=== PATIENT | female | born 1970 | race Hispanic/Latino ===

== ENCOUNTER 2016-03-20 11:31 | Day surgery (SDC) | payer OTHER ==
[2016-03-20] MEDS ORDERED: NACL 0.9% 1000 ML 1,000 ML IV SCH (12:00)
[2016-03-20] MEDS ORDERED: WATER FOR IRRIG STERILE IR ONE (12:24)
[2016-03-20] MEDS ORDERED: DIPRIVAN 10 MG/ML IV ONE (13:50)
--- NOTE | 2016-03-20 13:59 | Anesthesia Day of Surgery ---
Anesthesia Day of Surgery - Day of Surgery Patient Examined: Yes Patient H&P Reviewed: Yes Patient is NPO: Yes
--- NOTE | 2016-03-20 13:59 | Anesthesia Consultation ---
Anesthesia Consult and Med Hx Date of service: 03/20/16 - Airway Anesthetic Teeth Evaluation: Poor ROM Head & Neck: Adequate Mental/Hyoid Distance: Adequate Mallampati Class: Class II Intubation Access Assessment: Probably Good - Pulmonary Exam CTA: Yes - Cardiac Exam Cardiac Exam: RRR - Pre-Operative Health Status ASA Pre-Surgery Classification: ASA3 Proposed Anesthetic Plan: MAC - Pulmonary Hx Asthma: Yes - Cardiovascular System Hx Hypertension: Yes (HLD) Hx Angina: Yes (astypical, negative cardiac w/u) - Central Nervous System CVA: Yes (TIA) - Gastrointestinal Hx Gastroesophageal Reflux Disease: Yes - Other Systems Hx Obesity: Yes - Additional Comments Anesthesia Medical History Comments: NAC
--- NOTE | 2016-03-20 14:29 | Operative Report ---
Operative Report Operative Report: Date of procedure: 03/20/2016 Procedure: Esophagogastroduodenoscopy with multiple mucosal biopsies Attending physician: Jeferson Sky MD Property Assessment Monitor: Jeferson Sky MD Indication: Patient is a 45-year-old female who presents with persistent epigastric/right upper quadrant pain. An Upper endoscopy is done to assess patient so that treatment may be directed based on the findings. Consent: Informed consent was obtained after advising the patient and family regarding nature of this procedure, its indications, potential benefits as well as possible complications including but not limited to bleeding perforation and adverse reaction to medication, infection as well as other cardiopulmonary complications. An informed written and verbal consent was then obtained after due opportunity was provided for questions and answers. Monitoring: Patient was monitored continuously with pulse oximetry and electrocardiographic recordings as well as blood pressure recordings. Vital signs remained stable throughout this procedure with no untoward events. Preoperative assessment: Patient was assessed immediately prior to this procedure for capacity to tolerate monitored anesthesia care and moderate sedation as well as general anesthesia. Patient's ASA classification is 2, Mallampati class is 2, Hyomental distance is 3. Instrument: Ticket[employer]umbler video endoscope Medications: Propofol, given intravenously in divided doses. For details please refer to anesthesia records. Description of procedure: Patient was placed in the left lateral decubitus position after achieving sedation, the endoscope was introduced into the esophagus under direct vision. It was then advanced beyond the esophagus into the stomach and then beyond the stomach into the duodenum and to the second portion of the duodenum. It was subsequently withdrawn with careful inspection of all mucosal surfaces with the following findings. Findings: Esophagus was normal. The Z line was irregular. There was mild gastric antral erythema. Biopsies of the antrum were obtained for histopathology. The duodenum was normal to second portion. Impression: Irregular Z line. Mild gastric antral erythema. Plan: Follow pathology report and direct additional treatment based on the pathology report.
--- NOTE | 2016-03-20 14:33 | Discharge Summary ---
Short Stay Discharge Plan Weight Bearing Status: Weight Bear as Tolerated Diet: regular
[2016-03-20 14:58] VITALS: BP 135/73
--- NOTE | 2016-03-20 15:14 | Post Anesthesia Evaluation ---
- Post Anesthesia Evaluation Patient Participated: Yes Airway Patent: Yes Stable Respiratory Function: Yes Temp > 96.8F: Yes Pain Manageable: Yes Adequeate Hydration: Yes Anesthesia Complications: No Block Receding Appropriately: Not Applicable
== END 2016-03-20 11:32 | disposition home or self-care (01) ==
LOC: GIO 11:31
PROVIDERS: ATTEND Internal Medicine Gastroenterology
DX: K22.8 Other specified diseases of esophagus (principal); K31.89 Other diseases of stomach and duodenum; I10 Essential (primary) hypertension; K21.9 Gastro-esophageal reflux disease without esophagitis; J45.909 Unspecified asthma, uncomplicated; E66.9 Obesity, unspecified; Z68.42 Body mass index [BMI] 45.0-49.9, adult; Z86.73 Personal history of transient ischemic attack (TIA), and cerebral infarction without residual deficits
CPT/HCPCS: 43239; 88305; 88342; J2704; J7030

== ENCOUNTER 2016-05-28 10:37 | Emergency (ER) | payer OTHER ==
[2016-05-28 12:04] LABS: Basophils % (Auto) 0.4 % (0.0-1.8); Eosinophils % (Auto) 3.1 % (0.0-4.3); Hematocrit 38.3 % (30.3-42.9); Mean Corpuscular HGB Conc 34 % (30-34); Mean Corpuscular Hemoglobin 31 pg (28-32); Mean Corpuscular Volume 91 fl (79-97); Platelet Count 222 K/mm3 (140-440); Red Blood Count 4.19 M/mm3 (3.65-5.03); Red Cell Distribution Width 14.1 % (13.2-15.2); White Blood Count 6.5 K/mm3 (4.5-11.0)
[2016-05-28 12:21] LABS: BUN/Creatinine Ratio 17.14; Blood Urea Nitrogen 12 mg/dL (7-17); Calcium 9.3 mg/dL (8.4-10.2); Carbon Dioxide 25 mmol/L (22-30); Glucose 96 mg/dL (65-100)
[2016-05-28 12:22] LABS: Anion Gap 20 mmol/L; Chloride 95.1 mmol/L (98-107); Potassium 3.2 mmol/L (3.6-5.0); Sodium 137 mmol/L (137-145)
[2016-05-28] MEDS ORDERED: REGLAN IV ONE (14:45)
[2016-05-28] MEDS ORDERED: ULTRAM PO ONE (14:45)
[2016-05-28] MEDS ORDERED: NACL 0.9% 1000 ML 1,000 ML IV ONE (14:45)
--- NOTE | 2016-05-28 14:58 | Emergency Department Report ---
ED Chest Pain HPI - General Chief Complaint: Chest Pain Stated Complaint: CHEST PAIN Time Seen by Provider: 05/28/16 14:36 Source: patient Mode of arrival: Ambulatory Limitations: No Limitations - History of Present Illness Initial Comments: 46-year-old female presents to the emergency department complaining of chest pain. Patient reports the onset of chest pain at 9:30 this morning while at work. Patient describes a pressure sensation and stabbing pain in her right chest that radiates to her right shoulder blade. Patient reports associated headache and blurry vision. Headache is described as an aching. Headache and blurry vision are intermittent, but the chest pain has been constant since onset. Patient states that her chest pain is improving. Patient states she was having some mild shortness of breath when the pain was at its worst. Patient denies shortness of breath this time. She also denies associated nausea , vomiting, or diaphoresis. There are no other complaints. MD Complaint: chest pain -: Sudden, This morning Time: 09:30 Onset: during rest Pain Location: right chest Pain Radiation: back Severity: moderate Quality: pressure, other (stabbing) Consistency: constant Improves With: nothing Worsens With: palpation re: dyspnea. denies: nausea, vomting, diaphoresis Treatments Prior to Arrival: none Aspirin use within the Past 7 Days: (0) No - Related Data Home Medications Medication Instructions Recorded Confirmed Last Taken Hydrochlorothiazide [HCTZ] 25 mg PO QDAY 03/20/16 03/20/16 03/19/16 Pantoprazole [Protonix] 40 mg PO QDAY 03/20/16 03/20/16 03/18/16 Proventil 0.5% NEBS 200 inhalation PO PRN 03/20/16 03/20/16 03/18/16 Previous Rx's Medication Instructions Recorded Last Taken Type Metoprolol [Lopressor TAB] 25 mg PO QDAY #30 tablet 03/22/15 03/20/16 Rx 0900 Ondansetron [Zofran Odt] 4 mg PO TID #8 tab.rapdis 03/22/15 03/16/16 Rx Butalb/Acetamin/Caff 50-325-40 1 each PO Q4H PRN #20 tablet 05/28/16 Unknown Rx [Fioricet] traMADol [Ultram] 50 mg PO Q6HR PRN #20 tablet 05/28/16 Unknown Rx Allergies Allergy/AdvReac Type Severity Reaction Status Date / Time acetaminophen [From Percocet] Allergy Nausea,VOMI Unverified 07/02/15 08:37 TING aspirin Allergy Dizziness Verified 03/20/16 12:33 latex Allergy Rash Verified 03/20/16 12:33 naproxen [From Naprosyn] Allergy Rash Verified 05/28/16 11:05 oxycodone HCl [From Percocet] Allergy Nausea,VOMI Unverified 07/02/15 08:37 TING Sulfa (Sulfonamide Allergy Vomiting Verified 03/22/15 14:08 Antibiotics) ORLANDO score - Orlando Score Age > 65: (0) No Aspirin use within the Past 7 Days: (0) No 3 or more CAD Risk Factors: (0) No 2 or more Angina events in past 24 hrs: (0) No Known CAD with more than 50% Stenosis: (0) No Elevated Cardiac Markers: (0) No ST Deviation Greater than 0.5mm: (0) No [place]O Score: 0 ED Review of Systems ROS: Stated complaint: CHEST PAIN Other details as noted in HPI Comment: All other systems reviewed and negative Eyes: vision change Respiratory: shortness of breath Cardiovascular: chest pain Neurological: headache ED Past Medical Hx - Past Medical History Previous Medical History?: Yes Hx Hypertension: Yes Hx Headaches / Migraines: Yes (MIGRAINES) Hx Asthma: Yes Additional medical history: Hyperlipidemia - Surgical History Past Surgical History?: Yes Hx Cholecystectomy: Yes Additional Surgical History: R shoulder surgery - Family History Family history: no significant - Social History Smoking Status: Never Smoker Substance Use Type: None - Medications Home Medications: Home Medications Medication Instructions Recorded Confirmed Last Taken Type Metoprolol [Lopressor TAB] 25 mg PO QDAY #30 tablet 03/22/15 03/20/16 03/20/16 Rx 0900 Ondansetron [Zofran Odt] 4 mg PO TID #8 tab.rapdis 03/22/15 03/20/16 03/16/16 Rx Hydrochlorothiazide [HCTZ] 25 mg PO QDAY 03/20/16 03/20/16 03/19/16 History Pantoprazole [Protonix] 40 mg PO QDAY 03/20/16 03/20/16 03/18/16 History Proventil 0.5% NEBS 200 inhalation PO PRN 03/20/16 03/20/16 03/18/16 History Butalb/Acetamin/Caff 50-325-40 1 each PO Q4H PRN #20 tablet 05/28/16 Unknown Rx [Fioricet] traMADol [Ultram] 50 mg PO Q6HR PRN #20 tablet 05/28/16 Unknown Rx ED Physical Exam - General Limitations: No Limitations General appearance: alert, in no apparent distress - Head Head exam: Present: atraumatic, normocephalic - Eye Eye exam: Present: normal appearance, PERRL, EOMI - ENT ENT exam: Present: normal exam, normal orophraynx, mucous membranes moist - Neck Neck exam: Present: normal inspection, full ROM. Absent: tenderness - Respiratory Respiratory exam: Present: normal lung sounds bilaterally, chest wall tenderness (right anterior chest wall tender to palpation. Palpation reproduces her complaint.). Absent: respiratory distress - Cardiovascular Cardiovascular Exam: Present: regular rate, normal rhythm, normal heart sounds - GI/Abdominal GI/Abdominal exam: Present: soft, normal bowel sounds. Absent: distended, tenderness - Extremities Exam Extremities exam: Present: normal inspection, full ROM. Absent: tenderness - Back Exam Back exam: Present: normal inspection, full ROM. Absent: tenderness - Neurological Exam Neurological exam: Present: alert, oriented X3. Absent: motor sensory deficit - Skin Skin exam: Present: warm, dry, intact ED Course Vital Signs 05/28/16 05/28/16 11:06 15:06 Temperature 97.5 F L Pulse Rate 69 Respiratory 18 18 Rate Blood Pressure 136/76 O2 Sat by Pulse 96 96 Oximetry ED Medical Decision Making - Lab Data Result diagrams: 05/28/16 11:35 05/28/16 11:35 - EKG Data -: EKG Interpreted by Sd EKG shows normal: sinus rhythm, axis, intervals, QRS complexes, ST-T waves Rate: normal - EKG Data When compared to previous EKG there are: no significant change Interpretation: normal EKG, unchanged when compared t (10/20/2014) - Medical Decision Making Laboratory results reviewed and discussed with the patient. Patient has had a nonischemic ECG and 2 negative troponins. Patient reports feeling better with medication. Patient will be discharged home at this time. - Differential Diagnosis atypical chest pain, chest wall pain, migraine headache Critical care attestation.: If time is entered above; I have spent that time in minutes in the direct care of this critically ill patient, excluding procedure time. ED Disposition Clinical Impression: Chest wall pain Migraine headache without aura Qualifiers: Status migrainosus presence: without status migrainosus Intractability: not intractable Qualified Code(s): G43.009 - Migraine without aura, not intractable , without status migrainosus Disposition: DISCHARGED TO HOME OR SELFCARE Is pt being admited?: No Condition: Stable Instructions: Chest Pain (ED), Acute Headache (ED) Prescriptions: Butalb/Acetamin/Caff 50-325-40 [Fioricet] 1 each PO Q4H PRN #20 tablet PRN Reason: Headache traMADol [Ultram] 50 mg PO Q6HR PRN #20 tablet PRN Reason: Pain Referrals: PRIMARY CARE, [Primary Care Provider] - 3-5 Days Time of Disposition: 16:01
[2016-05-28 16:30] VITALS: BP 106/53
== END 2016-05-28 16:32 | disposition home or self-care (01) ==
LOC: ED 10:37
DX: G43.009 Migraine without aura, not intractable, without status migrainosus (principal); R07.89 Other chest pain; I10 Essential (primary) hypertension; J45.909 Unspecified asthma, uncomplicated; E78.5 Hyperlipidemia, unspecified; Z90.49 Acquired absence of other specified parts of digestive tract; Z88.2 Allergy status to sulfonamides; Z88.5 Allergy status to narcotic agent; Z88.8 Allergy status to other drugs, medicaments and biological substances; Z91.040 Latex allergy status
CPT/HCPCS: 36415; 80048; 84484; 85025; 93005; 93010; 96361; 96374; 99284; J2765; J7030

== ENCOUNTER 2016-07-04 10:37 | Outpatient (CLI) | payer OTHER ==
[2016-07-04] MEDS ORDERED: NACL ONE (11:18)
--- NOTE | 2016-07-04 12:52 | Cat Scan Report ---
CTA chest: History: Chest pain. Findings: No evidence of aortic aneurysm or pulmonary embolism. No pleural or pericardial effusion. No mediastinal mass or adenopathy. Normal lung parenchyma No discrete nodularity or consolidation. Impression: No evidence of pulmonary embolism. No acute lung findings.
== END 2016-07-04 10:38 | disposition home or self-care (01) ==
LOC: CT 10:37
PROVIDERS: ATTEND Internal Medicine Cardiovascular Disease
DX: R79.1 Abnormal coagulation profile (principal); R06.00 Dyspnea, unspecified; R07.89 Other chest pain; R06.02 Shortness of breath; R63.5 Abnormal weight gain
CPT/HCPCS: 71275; Q9967

== ENCOUNTER 2016-11-30 12:19 | Emergency (ER) | payer OTHER ==
[2016-11-30 13:12] LABS: Basophils % (Auto) 0.5 % (0.0-1.8); Eosinophils % (Auto) 4.2 % (0.0-4.3); Hematocrit 35.2 % (30.3-42.9); Hemoglobin 12.4 gm/dl (10.1-14.3); Mean Corpuscular HGB Conc 35 % (30-34); Mean Corpuscular Hemoglobin 33 pg (28-32); Mean Corpuscular Volume 93 fl (79-97); Platelet Count 188 K/mm3 (140-440); Red Blood Count 3.79 M/mm3 (3.65-5.03); Red Cell Distribution Width 13.6 % (13.2-15.2); White Blood Count 5.6 K/mm3 (4.5-11.0)
[2016-11-30 14:06] LABS: Anion Gap 18 mmol/L; BUN/Creatinine Ratio 19; Blood Urea Nitrogen 15 mg/dL (7-17); Carbon Dioxide 28 mmol/L (22-30); Chloride 95.7 mmol/L (98-107); Glucose 108 mg/dL (65-100); Potassium 3.4 mmol/L (3.6-5.0); Sodium 138 mmol/L (137-145)
[2016-11-30] MEDS: NACL ONE (19:03)
--- NOTE | 2016-11-30 20:12 | Emergency Department Report ---
HPI - General Chief Complaint: Chest Pain Time Seen by Provider: 11/30/16 17:26 - HPI HPI: 46-year-old female presents to ED with chest pain right-sided, also have some right-sided weakness numbness. Her symptoms is been going on for the past 2 days her chest pain is improved with Zantac and other antacids. She works at [employer] and consider herself pretty active. ED Past Medical Hx - Past Medical History Previous Medical History?: Yes Hx Hypertension: Yes 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 TIA OCT 2015 - Surgical History Past Surgical History?: Yes Hx Cholecystectomy: Yes Additional Surgical History: R shoulder surgery - Social History Smoking Status: Never Smoker Substance Use Type: Prescribed - Medications Home Medications: Home Medications Medication Instructions Recorded Confirmed Last Taken Type Hydrochlorothiazide [HCTZ] 25 mg PO DAILY 03/20/16 06/17/16 06/17/16 History AtorvaSTATin [Lipitor] 40 mg PO QHS 06/17/16 06/17/16 06/16/16 History Beclomethasone Dipropionate [Qvar] 2 puff IH BID 06/17/16 06/17/16 06/17/16 History Butalb/Acetamin/Caff 50-325-40 1 each PO PRN PRN 06/17/16 06/17/16 Unknown History [Fioricet] Gabapentin [Neurontin] 300 mg PO Q8HR 06/17/16 06/17/16 06/17/16 History Ibuprofen [Motrin 800 MG tab] 800 mg PO Q8HR PRN 06/17/16 06/17/16 06/17/16 History Metoclopramide [Reglan TAB] 1 each PO DAILY 06/17/16 06/17/16 06/17/16 History Metoprolol [Lopressor TAB] 50 mg PO QDAY 06/17/16 06/17/16 06/17/16 History Potassium Chloride [K-Tab ER] 10 meq PO DAILY 06/17/16 06/17/16 06/17/16 History ED Review of Systems ROS: Stated complaint: CHEST PAIN Other details as noted in HPI Comment: All other systems reviewed and negative Cardiovascular: chest pain Physical Exam - Physical Exam Vital Signs: Vital Signs 11/30/16 11/30/16 11/30/16 12:28 16:35 18:28 Temperature 97.8 F 97.7 F Pulse Rate 68 58 L Respiratory 18 18 Rate Blood Pressure 140/80 132/71 Blood Pressure [Right] O2 Sat by Pulse 96 99 98 Oximetry 11/30/16 11/30/16 11/30/16 18:30 18:51 18:58 Temperature Pulse Rate 62 61 Respiratory 17 11 L 18 Rate Blood Pressure Blood Pressure 124/70 [Right] O2 Sat by Pulse 98 99 Oximetry Physical Exam: Physical Exam: - General Limitations: No Limitations General appearance: alert, in no apparent distress. - Head Head exam: Present: atraumatic, normocephalic - Eye Eye exam: Present: normal appearance - ENT ENT exam: Present: mucous membranes moist - Neck Neck exam: Present: normal inspection - Respiratory Respiratory exam: Present: normal lung sounds bilaterally. Absent: respiratory distress - Cardiovascular Cardiovascular Exam: Present: normal rhythm, normal rate. Absent: systolic murmur, diastolic murmur, rubs, gallop - GI/Abdominal GI/Abdominal exam: Present: soft, normal bowel sounds - Extremities Exam Extremities exam: Present: normal inspection - Back Exam Back exam: Present: normal inspection - Neurological Exam Neurological exam: Present: alert, oriented X3 - Psychiatric Psychiatric exam: normal affect and mood - Skin Skin exam: Present: warm, dry, intact, normal color. Absent: rash ED Course Vital Signs 11/30/16 11/30/16 11/30/16 12:28 16:35 18:28 Temperature 97.8 F 97.7 F Pulse Rate 68 58 L Respiratory 18 18 Rate Blood Pressure 140/80 132/71 Blood Pressure [Right] O2 Sat by Pulse 96 99 98 Oximetry 11/30/16 11/30/16 11/30/16 18:30 18:51 18:58 Temperature Pulse Rate 62 61 Respiratory 17 11 L 18 Rate Blood Pressure Blood Pressure 124/70 [Right] O2 Sat by Pulse 98 99 Oximetry ED Medical Decision Making - Lab Data Result diagrams: 11/30/16 12:56 11/30/16 12:56 Critical care attestation.: If time is entered above; I have spent that time in minutes in the direct care of this critically ill patient, excluding procedure time. ED Disposition Clinical Impression: Paresthesia Chest pain Qualifiers: Chest pain type: other chest pain Qualified Code(s): R07.89 - Other chest pain ; R07.8 - Other chest pain GERD (gastroesophageal reflux disease) Qualifiers: Esophagitis presence: with esophagitis Qualified Code(s): K21.0 - Gastro- esophageal reflux disease with esophagitis Disposition: TO HOME OR SELFCARE Is pt being admited?: No Does the pt Need Aspirin: No Condition: Stable Instructions: Chest Pain (ED) Referrals: FRANCES BARNETT MD [Primary Care Provider] - 3-5 Days
--- NOTE | 2016-11-30 20:26 | Cat Scan Report ---
FINAL REPORT EXAM: CT HEAD/BRAIN WO CON HISTORY: right sided weakness TECHNIQUE: CT was performed from the foramen magnum through the vertex in the axial plane without the use of intravenous contrast. PRIORS: 03/01/2015 FINDINGS: The pan/white matter attenuation pattern is normal. There is no mass lesion or mass effect. There are no abnormal extra-axial fluid collections. There is no evidence of acute intracranial hemorrhage or infarct. The ventricles are of normal size and configuration. The skull and orbits are unremarkable. There is patchy mucosal thickening in the ethmoid air cells.. IMPRESSION: Normal CT of the head.
[2016-11-30 21:36] VITALS: BP 131/71
== END 2016-11-30 20:40 | disposition home or self-care (01) ==
LOC: ED 12:19
DX: K21.9 Gastro-esophageal reflux disease without esophagitis (principal); R07.89 Other chest pain; R20.2 Paresthesia of skin; I10 Essential (primary) hypertension; Z86.73 Personal history of transient ischemic attack (TIA), and cerebral infarction without residual deficits; E11.9 Type 2 diabetes mellitus without complications; J45.909 Unspecified asthma, uncomplicated; G43.909 Migraine, unspecified, not intractable, without status migrainosus; E78.5 Hyperlipidemia, unspecified; Z88.6 Allergy status to analgesic agent; Z88.8 Allergy status to other drugs, medicaments and biological substances
CPT/HCPCS: 36415; 70450; 80048; 84484; 85025; 93005; 93010

== ENCOUNTER 2018-04-02 10:37 | Observation (INO) | payer OTHER ==
[2018-04-02 11:36] LABS: Basophils % (Auto) 0.9 % (0.0-1.8); Eosinophils # (Auto) 0.2 K/mm3 (0.0-0.4); Eosinophils % (Auto) 3.6 % (0.0-4.3); Hematocrit 37.1 % (30.3-42.9); Hemoglobin 12.9 gm/dl (10.1-14.3); Lymphocytes # (Auto) 1.6 K/mm3 (1.2-5.4); Lymphocytes % (Auto) 30.2 % (13.4-35.0); Mean Corpuscular HGB Conc 35 % (30-34); Mean Corpuscular Volume 93 fl (79-97); Monocytes # (Auto) 0.3 K/mm3 (0.0-0.8); Monocytes % (Auto) 5.4 % (0.0-7.3); Platelet Count 186 K/mm3 (140-440); Red Blood Count 3.99 M/mm3 (3.65-5.03); Red Cell Distribution Width 14.2 % (13.2-15.2)
--- NOTE | 2018-04-02 11:42 | Emergency Department Report ---
ED Chest Pain HPI - General Chief Complaint: Chest Pain Stated Complaint: CHEST PAIN Time Seen by Provider: 04/02/18 11:19 Source: patient, EMS Mode of arrival: Wheelchair Limitations: No Limitations - History of Present Illness Initial Comments: 47-year-old female presents to the emergency department with complaint of some diaphoresis, chest pain, back pain and nausea. The patient says that she was at work when she started feeling diaphoretic. She says that she had a hysterectomy back in October and therefore thought that maybe she was just undergoing some menopausal changes. However 20 minutes later she started having chest pain across the entire chest with some radiation towards the back. This is a tightness/squeezing sensation. It has been there consistently since but the intensity waxes and wanes. The symptoms feel better when she is laying flat. She did not take anything for her symptoms prior to arrival. She has a past medical history that includes asthma, TIA, diet controlled diabetes, migraines, hypertension, hyperlipidemia, neuropathy and fibromyalgia. She also has a previous history of a pulmonary embolism last year but is not currently on any anticoagulation. Her primary care physician is Dr. Veto Mcpherson. She does not have a whitewasher. Severity scale (0 -10): 4 - Related Data Home Medications Medication Instructions Recorded Confirmed Last Taken hydroCHLOROthiazide [HCTZ] 25 mg PO DAILY 03/20/16 06/17/16 06/17/16 AtorvaSTATin [Lipitor] 40 mg PO QHS 06/17/16 06/17/16 06/16/16 Beclomethasone Dipropionate [Qvar] 2 puff IH BID 06/17/16 06/17/16 06/17/16 Butalb/Acetamin/Caff 50-325-40 1 each PO PRN PRN 06/17/16 06/17/16 Unknown [Fioricet] Gabapentin [Neurontin] 300 mg PO Q8HR 06/17/16 06/17/16 06/17/16 Ibuprofen [Motrin 800 MG tab] 800 mg PO Q8HR PRN 06/17/16 06/17/16 06/17/16 Metoclopramide [Reglan TAB] 1 each PO DAILY 06/17/16 06/17/16 06/17/16 Metoprolol [Lopressor TAB] 50 mg PO QDAY 06/17/16 06/17/16 06/17/16 Potassium Chloride [K-Tab ER] 10 meq PO DAILY 06/17/16 06/17/16 06/17/16 Allergies Allergy/AdvReac Type Severity Reaction Status Date / Time acetaminophen [From Percocet] Allergy Nausea,VOMI Verified 06/17/16 11:43 TING aspirin Allergy Dizziness Verified 06/17/16 11:43 latex Allergy Rash Verified 06/17/16 11:43 naproxen [From Naprosyn] Allergy Rash Verified 06/17/16 11:43 oxycodone HCl [From Percocet] Allergy Nausea,VOMI Verified 06/17/16 11:43 TING Sulfa (Sulfonamide Allergy Vomiting Verified 06/17/16 11:43 Antibiotics) Heart Score - HEART Score History: Moderately suspicious EKG: Normal Age: 45-65 Risk factors: 1-2 risk factors Troponin: < normal limit HEART Score: 3 - Critical Actions Critical Actions: 0-3 pts:0.9-1.7%risk of adverse cardiac event.Candidate for discharge ED Review of Systems ROS: Stated complaint: CHEST PAIN Other details as noted in HPI Comment: All other systems reviewed and negative Constitutional: diaphoresis. denies: fever Eyes: denies: eye pain, vision change ENT: denies: ear pain, throat pain Respiratory: denies: cough, shortness of breath Cardiovascular: chest pain. denies: palpitations Gastrointestinal: nausea. denies: vomiting Genitourinary: denies: dysuria, discharge Musculoskeletal: back pain. denies: arthralgia Skin: denies: rash, lesions Neurological: denies: weakness, numbness ED Past Medical Hx - Past Medical History Previous Medical History?: Yes Hx Hypertension: Yes 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 TIA OCT 2015. neuropathy. fibromyalgia - Surgical History Hx Cholecystectomy: Yes Additional Surgical History: R shoulder surgery - Social History Smoking Status: Never Smoker Substance Use Type: None - Medications Home Medications: Home Medications Medication Instructions Recorded Confirmed Last Taken Type hydroCHLOROthiazide [HCTZ] 25 mg PO DAILY 03/20/16 06/17/16 06/17/16 History AtorvaSTATin [Lipitor] 40 mg PO QHS 06/17/16 06/17/16 06/16/16 History Beclomethasone Dipropionate [Qvar] 2 puff IH BID 06/17/16 06/17/16 06/17/16 History Butalb/Acetamin/Caff 50-325-40 1 each PO PRN PRN 06/17/16 06/17/16 Unknown History [Fioricet] Gabapentin [Neurontin] 300 mg PO Q8HR 06/17/16 06/17/16 06/17/16 History Ibuprofen [Motrin 800 MG tab] 800 mg PO Q8HR PRN 06/17/16 06/17/16 06/17/16 History Metoclopramide [Reglan TAB] 1 each PO DAILY 06/17/16 06/17/16 06/17/16 History Metoprolol [Lopressor TAB] 50 mg PO QDAY 06/17/16 06/17/16 06/17/16 History Potassium Chloride [K-Tab ER] 10 meq PO DAILY 06/17/16 06/17/16 06/17/16 History ED Physical Exam - General Limitations: No Limitations - Other Other exam information: GENERAL: The patient is well-developed well-nourished. HEENT: Normocephalic. Atraumatic. Patient has moist mucous membranes. EYES: Extraocular motions are intact. Pupils are equal and reactive to light bilaterally. NECK: Supple. Trachea is midline. CHEST/LUNGS: Clear to auscultation. There is no respiratory distress noted. HEART/CARDIOVASCULAR: Regular. There is no tachycardia. There is no obvious murmur. ABDOMEN: Abdomen is soft, nontender. Patient has normal bowel sounds. Obese habitus. SKIN: Skin is warm and dry. NEURO: The patient is awake, alert, and oriented. The patient is cooperative. The patient has no focal neurologic deficits. The patient has normal speech. MUSCULOSKELETAL: There is no tenderness or deformity. There is no evidence of acute injury. ED Course Vital Signs 04/02/18 04/02/18 04/02/18 11:00 11:02 11:16 Temperature 98.5 F Pulse Rate 81 77 Respiratory 15 99 H Rate Blood Pressure 142/88 135/72 142/88 O2 Sat by Pulse 93 97 Oximetry 04/02/18 04/02/18 11:30 11:36 Temperature Pulse Rate 74 Respiratory 19 14 Rate Blood Pressure 127/71 O2 Sat by Pulse 92 Oximetry ORLANDO score - Orlando Score Age > 65: (0) No Aspirin use within the Past 7 Days: (0) No 3 or more CAD Risk Factors: (0) No 2 or more Angina events in past 24 hrs: (1) Yes Known CAD with more than 50% Stenosis: (0) No Elevated Cardiac Markers: (0) No ST Deviation Greater than 0.5mm: (0) No ORLANDO Score: 1 ED Medical Decision Making - Lab Data Result diagrams: 04/02/18 11:23 04/02/18 11:23 - EKG Data -: EKG Interpreted by Me EKG shows normal: sinus rhythm, axis, intervals, QRS complexes, ST-T waves Rate: normal - EKG Data When compared to previous EKG there are: previous EKG unavailable Interpretation: normal EKG - Radiology Data Radiology results: image reviewed interpreted by me: Chest x-ray does not show any pneumothorax, pleural effusion, pneumonia or obvious focal consolidation. - Medical Decision Making Patient presents to the emergency department with complaint of some chest pain with radiation towards the back that was preceded by some diaphoresis. Patient has multiple comorbidities and medical conditions. Vital signs stable. EKG did not show any signs of ST elevation [place]. First troponin negative and negative d- dimer. Chest x-ray did not show any pleural effusions, focal consolidation, pneumothorax, pneumonia, or any other acute process. It has been almost 2 years since patient had a heart catheterization and for stress test and she continues to have chest discomfort. These reasons patient will be admitted to the hospital for further evaluation and treatment was extended for admission by the hospitalist, Dr. Chambers. - Differential Diagnosis WA, PE, Costochondritis, Pneumonia Critical Care Time: No Critical care attestation.: If time is entered above; I have spent that time in minutes in the direct care of this critically ill patient, excluding procedure time. ED Disposition Clinical Impression: Atypical chest pain, Acute chest pain, Diaphoresis Obesity Qualifiers: Obesity type: unspecified obesity type Obesity classification: adult class 3 (BMI >= 40) Serious obesity comorbidity presence: unspecified whether serious comorbidity present Body mass index: unspecified BMI Qualified Code(s): E66.01 - Morbid (severe) obesity due to excess calories Disposition: OP ADMIT IP TO THIS HOSP Is pt being admited?: Yes Condition: Fair Instructions: Chest Pain (ED) Referrals: PRIMARY CARE,MD [Primary Care Provider] - 3-5 Days
[2018-04-02 11:47] LABS: INR 0.95 (0.87-1.13)
[2018-04-02 11:55] LABS: BUN/Creatinine Ratio 11; Blood Urea Nitrogen 8 mg/dL (7-17); Calcium 9.5 mg/dL (8.4-10.2); Hemolysis Index 22
--- NOTE | 2018-04-02 12:15 | XRay Report ---
AP CHEST: HISTORY: chest pain AP view of the chest demonstrates a normal mediastinal and cardiac contour with clear lungs and normal bony and soft tissue structures. IMPRESSION: Unremarkable AP chest.
--- NOTE | 2018-04-03 02:33 | History and Physical Report ---
History of Present Illness Date of examination: 04/02/18 Date of admission: 04/02/18 12:26 Chief complaint: Chest pain History of present illness: 47-year-old female with history of HTN Gerd PN and HLD comes infro chest pain for 1 day associated with diaphoresis and SOB.Chest pain is retrosternal and precordial.Nausea present.No recent travel.No sob on exertion.Had VVA with some residual weakness.No stents or cath. Past Medical History Previous Medical History?: Yes Hypertension: Yes CVA: Yes (weakness on right side) Diabetes: Yes (border line diet controlled) Headaches / Migraines: Yes (MIGRAINES) Asthma: Yes Additional medical history: Hyperlipidemia. TIA OCT 2015. neuropathy. fibromyalgia Surgical History Hx Cholecystectomy: Yes Additional Surgical History: R shoulder surgery Social History Smoking Status: Never Smoker Substance Use Type: None Family History Htn Medications Home Medications: Home Medications Medication Instructions Recorded Confirmed Last Taken Type hydroCHLOROthiazide [HCTZ] 25 mg PO DAILY 03/20/16 06/17/16 06/17/16 History AtorvaSTATin [Lipitor] 40 mg PO QHS 06/17/16 06/17/16 06/16/16 History Beclomethasone Dipropionate [Qvar] 2 puff IH BID 06/17/16 06/17/16 06/17/16 History Butalb/Acetamin/Caff 50-325-40 1 each PO PRN PRN 06/17/16 06/17/16 Unknown History [Fioricet] Gabapentin [Neurontin] 300 mg PO Q8HR 06/17/16 06/17/16 06/17/16 History Ibuprofen [Motrin 800 MG tab] 800 mg PO Q8HR PRN 06/17/16 06/17/16 06/17/16 History Metoclopramide [Reglan TAB] 1 each PO DAILY 06/17/16 06/17/16 06/17/16 History Metoprolol [Lopressor TAB] 50 mg PO QDAY 06/17/16 06/17/16 06/17/16 History Potassium Chloride [K-Tab ER] 10 meq PO DAILY 06/17/16 06/17/16 06/17/16 History Review of Systems ROS: Stated complaint: CHEST PAIN Other details as noted in HPI Comment: All other systems reviewed and negative Constitutional: diaphoresis. denies: fever Eyes: denies: eye pain, vision change ENT: denies: ear pain, throat pain Respiratory: denies: cough, shortness of breath Cardiovascular: chest pain. denies: palpitations Gastrointestinal: nausea. denies: vomiting Genitourinary: denies: dysuria, discharge Musculoskeletal: back pain. denies: arthralgia Skin: denies: rash, lesions Neurological: denies: weakness, numbness Medications and Allergies Allergies Allergy/AdvReac Type Severity Reaction Status Date / Time acetaminophen [From Percocet] Allergy Nausea,VOMI Verified 06/17/16 11:43 TING aspirin Allergy Dizziness Verified 06/17/16 11:43 latex Allergy Rash Verified 06/17/16 11:43 naproxen [From Naprosyn] Allergy Rash Verified 06/17/16 11:43 oxycodone HCl [From Percocet] Allergy Nausea,VOMI Verified 06/17/16 11:43 TING Sulfa (Sulfonamide Allergy Vomiting Verified 06/17/16 11:43 Antibiotics) Home Medications Medication Instructions Recorded Confirmed Last Taken Type hydroCHLOROthiazide [HCTZ] 25 mg PO DAILY 03/20/16 04/02/18 06/17/16 History Beclomethasone Dipropionate [Qvar] 2 puff IH QDAY 06/17/16 04/02/18 06/17/16 History Gabapentin [Neurontin] 400 mg PO TID 04/02/18 04/02/18 Unknown History Metoprolol Succinate [Toprol Xl] 50 mg PO QDAY 04/02/18 04/02/18 Unknown History Pantoprazole [Protonix] 40 mg PO DAILY 04/02/18 04/02/18 Unknown History Exam - Constitutional Vitals: Temp Pulse Resp BP Pulse Ox 98.0 F 83 20 135/72 94 04/03/18 00:15 04/03/18 00:15 04/03/18 00:15 04/03/18 00:15 04/03/18 00:15 General appearance: Present: no acute distress, well-nourished - EENT Eyes: Present: PERRL ENT: hearing intact, clear oral mucosa - Neck Neck: Present: supple, normal ROM - Respiratory Respiratory effort: normal Respiratory: bilateral: CTA - Cardiovascular Heart rate: 78 Rhythm: regular Heart Sounds: Present: S1 & S2. Absent: rub, click - Extremities Extremities: no ischemia, pulses intact, pulses symmetrical, No edema Peripheral Pulses: within normal limits - Abdominal General gastrointestinal: Present: soft, non-tender, non-distended, normal bowel sounds Female genitourinary: Present: normal - Integumentary Integumentary: Present: clear, warm, dry - Musculoskeletal Musculoskeletal: gait normal, strength equal bilaterally - Psychiatric Psychiatric: appropriate mood/affect, intact judgment & insight - Neurologic Neurologic: CNII-XII intact, moves all extremities - Allied Health Allied health notes reviewed: nursing, case management Results - Labs CBC & Chem 7: 04/02/18 11:23 04/02/18 11:23 Labs: Laboratory Last Values WBC 5.3 K/mm3 (4.5-11.0) 04/02/18 11:23 RBC 3.99 M/mm3 (3.65-5.03) 04/02/18 11:23 Hgb 12.9 gm/dl (10.1-14.3) 04/02/18 11:23 Hct 37.1 % (30.3-42.9) 04/02/18 11:23 MCV 93 fl (79-97) 04/02/18 11:23 MCH 32 pg (28-32) 04/02/18 11:23 MCHC 35 % (30-34) H 04/02/18 11:23 RDW 14.2 % (13.2-15.2) 04/02/18 11:23 Plt Count 186 K/mm3 (140-440) 04/02/18 11:23 Lymph % (Auto) 30.2 % (13.4-35.0) 04/02/18 11:23 Elliott % (Auto) 5.4 % (0.0-7.3) 04/02/18 11:23 Eos % (Auto) 3.6 % (0.0-4.3) 04/02/18 11:23 Baso % (Auto) 0.9 % (0.0-1.8) 04/02/18 11:23 Lymph # 1.6 K/mm3 (1.2-5.4) 04/02/18 11:23 Elliott # 0.3 K/mm3 (0.0-0.8) 04/02/18 11:23 Eos # 0.2 K/mm3 (0.0-0.4) 04/02/18 11:23 Baso # 0.0 K/mm3 (0.0-0.1) 04/02/18 11:23 Seg Neutrophils % 59.9 % (40.0-70.0) 04/02/18 11:23 Seg Neutrophils # 3.2 K/mm3 (1.8-7.7) 04/02/18 11:23 PT 13.3 Sec. (12.2-14.9) 04/02/18 11:23 INR 0.95 (0.87-1.13) 04/02/18 11:23 APTT 24.0 Sec. (24.2-36.6) L 04/02/18 11:23 D-Dimer 191.05 ng/mlDDU (0-234) 04/02/18 11:23 Sodium 136 mmol/L (137-145) L 04/02/18 11:23 Potassium 4.3 mmol/L (3.6-5.0) 04/02/18 11:23 Chloride 98.5 mmol/L (98-107) 04/02/18 11:23 Carbon Dioxide 25 mmol/L (22-30) 04/02/18 11:23 Anion Gap 17 mmol/L 04/02/18 11:23 BUN 8 mg/dL (7-17) 04/02/18 11:23 Creatinine 0.7 mg/dL (0.7-1.2) 04/02/18 11:23 Estimated GFR > 60 ml/min 04/02/18 11:23 BUN/Creatinine Ratio 11 % 04/02/18 11:23 Glucose 228 mg/dL (65-100) H 04/02/18 11:23 Calcium 9.5 mg/dL (8.4-10.2) 04/02/18 11:23 Troponin T < 0.010 ng/mL (0.00-0.029) 04/02/18 18:56 Short CBC 04/02/18 Range/Units 11:23 WBC 5.3 (4.5-11.0) K/mm3 Hgb 12.9 (10.1-14.3) gm/dl Hct 37.1 (30.3-42.9) % Plt Count 186 (140-440) K/mm3 BMP 04/02/18 11:23 Sodium 136 L Potassium 4.3 Chloride 98.5 Carbon Dioxide 25 BUN 8 Creatinine 0.7 Glucose 228 H Calcium 9.5 Cardiac Enzymes 04/02/18 04/02/18 04/02/18 Range/Units 11:23 15:05 18:56 Troponin T < 0.010 < 0.010 < 0.010 (0.00-0.029) ng/mL - Imaging and Cardiology EKG: report reviewed (NSR 73 / min No acute ST T wave changes) Assessment and Plan Advance Directives: Yes (Full code) VTE prophylaxis?: Chemical Plan of care discussed with patient/family: Yes - Patient Problems (1) Acute chest pain Current Visit: Yes Status: Acute Plan to address problem: lexiscan in AM Serial Troponins (2) HTN (hypertension) Current Visit: No Status: Chronic Qualifiers: Hypertension type: essential hypertension Qualified Code(s): I10 - Essential (primary) hypertension Plan to address problem: Cont antihypertensives (3) GERD (gastroesophageal reflux disease) Current Visit: Yes Status: Chronic Qualifiers: Esophagitis presence: without esophagitis Qualified Code(s): K21.9 - Gastro-esophageal reflux disease without esophagitis Plan to address problem: Cont PPI's (4) Peripheral neuropathy Current Visit: Yes Status: Chronic Qualifiers: Peripheral neuropathy type: polyneuropathy, unspecified Qualified Code(s): G62.9 - Polyneuropathy, unspecified Plan to address problem: Cont Gabapentin (5) CVA (cerebrovascular accident) Current Visit: Yes Status: Chronic Qualifiers: CVA mechanism: thrombosis Laterality of affected vessel: left Plan to address problem: Residual Rt sided weakness (6) DVT prophylaxis Current Visit: Yes Status: Acute Plan to address problem: On LOvenox and GI prophylaxis
[2018-04-03] MEDS ORDERED: PERCOCET 5/325 PO PRN (02:44)
[2018-04-03] MEDS ORDERED: ZOFRAN IV PRN (02:44)
[2018-04-03] MEDS ORDERED: DILAUDID IV PRN (02:44)
[2018-04-03] MEDS ORDERED: TYLENOL PO PRN (02:44)
[2018-04-03] MEDS ORDERED: SODIUM CHLORIDE FLUSH SYRINGE 10 ML IV PRN (02:44)
[2018-04-03] MEDS ORDERED: LEXISCAN IV ONE ×2 (08:06→08:27)
[2018-04-03] MEDS: GLUCOPHAGE PO SCH ×2 (08:34→14:14)
[2018-04-03] MEDS: NEURONTIN PO SCH ×2 (08:34→14:14)
[2018-04-03] MEDS ORDERED: PROTONIX PO SCH (10:00)
[2018-04-03] MEDS ORDERED: SODIUM CHLORIDE FLUSH SYRINGE 10 ML IV SCH (10:00)
[2018-04-03] MEDS ORDERED: HCTZ PO SCH (10:00)
[2018-04-03] MEDS ORDERED: TOPROL XL PO SCH (10:00)
--- NOTE | 2018-04-03 12:23 | Treadmill Report ---
INDICATION: Chest pain. ORDERING PHYSICIAN: Jean-Pierre Chambers MD FINDINGS: There is no scintigraphic evidence of myocardial ischemia. The left ventricle is normal in size and systolic function, left ventricular ejection fraction is measured at 69%. Normal wall motion and wall thickening is noted on gated imaging. CONCLUSION: Normal perfusion scan. JOB# [id number] LEILA/JESSICA
[2018-04-03 13:33] VITALS: BP 140/58
--- NOTE | 2018-04-03 16:40 | Discharge Summary ---
Providers - Providers Date of Admission: 04/02/18 12:26 Date of discharge: 04/03/18 Attending physician: WADE ROSS Primary care physician: LIBRARIAN ASSISTANT Hospitalization Condition: Stable Hospital course: Patient is a 47 yo White Woman with a history of dlp, hypertension, diet controlled DM type 2, asthma, migraines, neuropathy and fibromyalgia who presents with chest pains and uncontrolled bg. (1) Acute chest pain, most likely msk/costochronitis if stress test negative Current Visit: Yes Status: Acute Plan to address problem: lexiscan in AM Serial Troponins (2) HTN (hypertension) Current Visit: No Status: Chronic Qualifiers: Hypertension type: essential hypertension Qualified Code(s): I10 - Essential (primary) hypertension Plan to address problem: Cont antihypertensives (3) GERD (gastroesophageal reflux disease) Current Visit: Yes Status: Chronic Qualifiers: Esophagitis presence: without esophagitis Qualified Code(s): K21.9 - Gastro-esophageal reflux disease without esophagitis Plan to address problem: Cont PPI's (4) Peripheral neuropathy Current Visit: Yes Status: Chronic Qualifiers: Peripheral neuropathy type: polyneuropathy, unspecified Qualified Code(s): G62.9 - Polyneuropathy, unspecified Plan to address problem: Cont Gabapentin (5) CVA (cerebrovascular accident) Current Visit: Yes Status: Chronic Qualifiers: CVA mechanism: thrombosis Laterality of affected vessel: left Plan to address problem: Residual Rt sided weakness (6) DVT prophylaxis Current Visit: Yes Status: Acute Plan to address problem: On LOvenox and GI prophylaxis Disposition: DC-01 TO HOME OR SELFCARE Time spent for discharge: 31 minutes Core Measure Documentation - Palliative Care Palliative Care/ Comfort Measures: Not Applicable - Core Measures Any of the following diagnoses?: none - VTE Discharge Requirements Deep Vein Thrombosis/Pulmonary Embolism Present on Admission: No Has pt received <5 days of overlap therapy or INR<2.0: No Anticoagulant overlap therapy prescribed at discharge: No Contraindication No Overlap Therapy order at DC: Not Indicated Exam - Physical Exam Narrative exam: Gen: WDWN, NAD, Awake, Alert, Orientated x 3, bmi 41.6 HEENT: NCAT, EOMI, PERRL, OP Clear, missing teeth Neck: supple, no adenopathy, no thyromegaly, no JVD CVS/Heart: RRR, normal S1S2, pulses present bilaterally Chest/Lungs: CTA B, Symmetrical chest expansion, good air entry bilaterally, reproducible left side cw tenderness GI/Abdomen: soft, NTND, good bowel sounds, no guarding or rebound /Bladder: no suprapubic tenderness, no CVA or paraspinal tenderness Extermity/Skin: no c/c/e, no obvious rash MSK: FROM x 4 Neuro: CN 2-12 grossly intact, no new focal deficits Psych: calm - Constitutional Vitals: Temp Pulse Resp BP Pulse Ox 98.0 F 81 20 140/58 98 04/03/18 04:59 04/03/18 12:44 04/03/18 04:59 04/03/18 12:44 04/03/18 12:44 Plan Activity: other (no strenous activity unless cleared by PCP) Diet: low salt, diabetic Special Instructions: record daily BP diary, record blood sugar diary (tid with meals and take to pcp) Follow up with: PRIMARY CARE, [Primary Care Provider] - 3-5 Days MONTSERRAT VILLELA [Staff Physician] - 7 Days Prescriptions: Gabapentin [Neurontin] 400 mg PO TID #90 capsule metFORMIN [Glucophage] 500 mg PO BIDDIAB #60 tablet
== END 2018-04-03 18:49 | disposition home or self-care (01) ==
LOC: ED 10:37 → 4A 12:26
PROVIDERS: ADMIT Internal Medicine; ATTEND Internal Medicine
DX: R07.89 Other chest pain (principal); I10 Essential (primary) hypertension; K21.9 Gastro-esophageal reflux disease without esophagitis; G62.9 Polyneuropathy, unspecified; E78.5 Hyperlipidemia, unspecified; M79.7 Fibromyalgia; R61 Generalized hyperhidrosis; E66.9 Obesity, unspecified; J45.909 Unspecified asthma, uncomplicated; Z86.73 Personal history of transient ischemic attack (TIA), and cerebral infarction without residual deficits; Z86.718 Personal history of other venous thrombosis and embolism
CPT/HCPCS: 36415; 71045; 78452; 80048; 84484; 85025; 85379; 85610; 85730; 93005; 93010; 93017; 99284; A9502; G0378; J2785

== ENCOUNTER 2020-07-19 14:11 | Emergency (ER) | payer OTHER ==
--- NOTE | 2020-07-19 18:16 | Event Note ---
ED Screening Note Date of service: 07/19/20 Time: 18:14 ED Screening Note: 50-year-old female patient with history of diabetes, hypertension, and previous cholecystectomy presents to the emergency department with complaints of right lower quadrant abdominal pain with associated nausea, vomiting, and constipation starting 2 weeks ago and worsening since yesterday. Patient was evaluated at a local urgent care facility last week. Outpatient CT of the abdomen/pelvis was ordered but patient was unable to obtain imaging due to financial constraints. Last bowel movement was yesterday. Patient reports intermittent black stools. She is not anticoagulated. Hypertensive in triage. General: Awake, appropriately interactive, no acute distress. Neck: Supple. Full range of motion intact. Cardiovascular: Normal peripheral perfusion. Pulmonary: No respiratory distress. Patient is speaking normally without use of accessory muscles. Abdomen: Diffuse lower abdominal tenderness. Skin: No apparent rashes or lesions. Neurological: No facial asymmetry. Speech is clear. Follows commands. Patient is alert and oriented. Musculoskeletal: Moves all four extremities spontaneously with normal range of motion. Psych: Cooperative. Appropriate mood and affect. Initial labs ordered; decision to obtain imaging deferred to additional ED providers following complete history and comprehensive physical examination. I have greeted and performed a focused rapid initial assessment of this patient. A comprehensive ED assessment and evaluation of the patient, analysis of all test results, and completion of the medical decision-making process will be conducted by additional ED providers. This initial assessment/diagnostic orders/clinical plan/treatment(s) is/are subject to change based on patients health status, clinical progression and re-assessment. Further treatment and workup at subsequent clinical provider's discretion. Patient/guardian urged not to elope from the ED as their condition may be serious if not clinically assessed and managed.
[2020-07-19 18:35] LABS: Basophils % (Auto) 0.6 % (0.0-1.8); Eosinophils # (Auto) 0.2 K/mm3 (0.0-0.4); Eosinophils % (Auto) 3.4 % (0.0-4.3); Hematocrit 41.2 % (30.3-42.9); Hemoglobin 14.2 gm/dl (10.1-14.3); Lymphocytes # (Auto) 2.5 K/mm3 (1.2-5.4); Lymphocytes % (Auto) 37.6 % (13.4-35.0); Mean Corpuscular HGB Conc 35 % (30-34); Mean Corpuscular Volume 93 fl (79-97); Monocytes # (Auto) 0.4 K/mm3 (0.0-0.8); Monocytes % (Auto) 6.2 % (0.0-7.3); Platelet Count 243 K/mm3 (140-440); Red Blood Count 4.44 M/mm3 (3.65-5.03)
[2020-07-19 18:59] LABS: Alanine Aminotransferase 49 units/L (7-56); BUN/Creatinine Ratio 11; Blood Urea Nitrogen 9 mg/dL (7-17); Calcium 9.7 mg/dL (8.4-10.2); Hemolysis Index 13
[2020-07-19 20:40] LABS: Bilirubin,Urine NEG (Negative); Blood,Urine NEG (Negative); Color,Urine Yellow (Yellow); Protein,Urine <15 mg/dL mg/dL (Negative); Urobilinogen,Urine < 2.0 mg/dL (<2.0)
[2020-07-19] MEDS ORDERED: ALUM-MAG HYDROXIDE-SIMETHICONE 200-200-20MG/5ML ORAL LIQD 30 ML PO ONE (21:04)
[2020-07-19] MEDS ORDERED: LIDOCAINE VISCOUS 2% 15 ML ORAL LIQD PO ONE (21:04)
[2020-07-19] MEDS ORDERED: METOPROLOL SUCCINATE XL 50 MG TAB PO ONE (21:05)
--- NOTE | 2020-07-19 21:58 | Emergency Department Report ---
ED General Adult HPI - General Chief complaint: Abdominal Pain Stated complaint: ABDOMINAL/HEADACHE/CHEST PAIN Time Seen by Provider: 07/19/20 20:41 Source: patient Mode of arrival: Ambulatory Limitations: No Limitations - History of Present Illness Initial comments: 50-year-old female patient with history of diabetes, hypertension, and previous cholecystectomy presents to the emergency department with complaints of right lower quadrant abdominal pain with associated nausea, vomiting, and constipation starting 2 weeks ago and worsening since yesterday. Patient was evaluated at a local urgent care facility last week. Outpatient CT of the abdomen/pelvis was ordered but patient was unable to obtain imaging due to financial constraints. Last bowel movement was yesterday. Patient reports intermittent black stools. She is not anticoagulated. Pat patient states she just started H2 gisel. Severity scale (0 -10): 7 - Related Data Home Medications Medication Instructions Recorded Confirmed Last Taken hydroCHLOROthiazide [HCTZ] 25 mg PO DAILY 03/20/16 04/02/18 06/17/16 Beclomethasone Dipropionate [Qvar] 2 puff IH QDAY 06/17/16 04/02/18 06/17/16 Metoprolol Succinate [Toprol Xl] 50 mg PO QDAY 04/02/18 04/02/18 Unknown Pantoprazole [Protonix TAB] 40 mg PO DAILY 04/02/18 04/02/18 Unknown Previous Rx's Medication Instructions Recorded Last Taken Type Gabapentin [Neurontin] 400 mg PO TID #90 capsule 04/03/18 Unknown Rx metFORMIN [Glucophage] 500 mg PO BIDDIAB #60 tablet 04/03/18 Unknown Rx Sucralfate [Carafate] 1 gm PO ACHS #28 tablet 07/19/20 Unknown Rx Allergies Allergy/AdvReac Type Severity Reaction Status Date / Time acetaminophen [From Percocet] Allergy Nausea,VOMI Verified 06/17/16 11:43 TING aspirin Allergy Dizziness Verified 06/17/16 11:43 latex Allergy Rash Verified 06/17/16 11:43 naproxen [From Naprosyn] Allergy Rash Verified 06/17/16 11:43 oxycodone HCl [From Percocet] Allergy Nausea,VOMI Verified 06/17/16 11:43 TING Sulfa (Sulfonamide Allergy Vomiting Verified 06/17/16 11:43 Antibiotics) ED Review of Systems ROS: Stated complaint: ABDOMINAL/HEADACHE/CHEST PAIN Other details as noted in HPI Constitutional: denies: chills, fever Eyes: denies: eye pain, eye discharge, vision change ENT: denies: ear pain, throat pain Respiratory: denies: cough, shortness of breath, wheezing Cardiovascular: chest pain (epigastric ) Endocrine: no symptoms reported Gastrointestinal: abdominal pain, nausea, constipation. denies: vomiting Genitourinary: frequency. 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 TIA OCT 2015. neuropathy. fibromyalgia - Surgical History Past Surgical History?: Yes Hx Cholecystectomy: Yes Additional Surgical History: R shoulder surgery - Social History Smoking Status: Never Smoker - Medications Home Medications: Home Medications Medication Instructions Recorded Confirmed Last Taken Type hydroCHLOROthiazide [HCTZ] 25 mg PO DAILY 03/20/16 04/02/18 06/17/16 History Beclomethasone Dipropionate [Qvar] 2 puff IH QDAY 06/17/16 04/02/18 06/17/16 History Metoprolol Succinate [Toprol Xl] 50 mg PO QDAY 04/02/18 04/02/18 Unknown History Pantoprazole [Protonix TAB] 40 mg PO DAILY 04/02/18 04/02/18 Unknown History Gabapentin [Neurontin] 400 mg PO TID #90 capsule 04/03/18 Unknown Rx metFORMIN [Glucophage] 500 mg PO BIDDIAB #60 tablet 04/03/18 Unknown Rx Sucralfate [Carafate] 1 gm PO ACHS #28 tablet 07/19/20 Unknown Rx ED Physical Exam - General Limitations: No Limitations General appearance: alert, in no apparent distress - Head Head exam: Present: atraumatic, normocephalic - Eye Eye exam: Present: normal appearance, EOMI Pupils: Present: normal accommodation - ENT ENT exam: Present: mucous membranes moist - Neck Neck exam: Present: normal inspection, full ROM. Absent: tenderness - Respiratory Respiratory exam: Present: normal lung sounds bilaterally, chest wall tenderness. Absent: respiratory distress, wheezes, stridor - Cardiovascular Cardiovascular Exam: Present: regular rate, normal rhythm, normal heart sounds. Absent: systolic murmur, diastolic murmur, rubs, gallop - GI/Abdominal GI/Abdominal exam: Present: soft, tenderness (LLQ ), normal bowel sounds. Absent: guarding, rebound, rigid, bruit, hernia - Expanded GI/Abdominal Exam Expanded GI/Abdominal exam: Absent: psoas sign, obturator sign, heel tap sign, Trevino's sign, Rovsing's sign, tenderness at Mcburney's Point, ascites - Rectal Rectal exam: Present: deferred - Extremities Exam Extremities exam: Present: normal inspection, full ROM, normal capillary refill. Absent: tenderness - Back Exam Back exam: Present: normal inspection, full ROM. Absent: CVA tenderness (R), CVA tenderness (L) - Neurological Exam Neurological exam: Present: alert, oriented X3, CN II-XII intact, normal gait - Psychiatric Psychiatric exam: Present: normal affect, normal mood - Skin Skin exam: Present: warm, dry, intact, normal color. Absent: rash ED Course Vital Signs 07/19/20 17:43 Temperature 97.7 F Pulse Rate 82 Respiratory 18 Rate Blood Pressure 192/122 [Right] O2 Sat by Pulse 97 Oximetry ED Medical Decision Making - Lab Data Result diagrams: 07/19/20 18:25 07/19/20 18:25 Labs 07/19/20 07/19/20 07/19/20 18:25 18:25 18:25 WBC 6.6 RBC 4.44 Hgb 14.2 Hct 41.2 MCV 93 MCH 32 MCHC 35 H RDW 15.0 Plt Count 243 Lymph % (Auto) 37.6 H [place] % (Auto) 6.2 Eos % (Auto) 3.4 Baso % (Auto) 0.6 Lymph # (Auto) 2.5 [place] # (Auto) 0.4 Eos # (Auto) 0.2 Baso # (Auto) 0.0 Seg Neutrophils % 52.2 Seg Neutrophils # 3.5 Sodium 138 Potassium 3.9 Chloride 101.4 Carbon Dioxide 23 Anion Gap 18 BUN 9 Creatinine 0.8 Estimated GFR > 60 BUN/Creatinine Ratio 11 Glucose 127 H Calcium 9.7 Magnesium 2.20 Total Bilirubin 0.50 AST 51 H ALT 49 Alkaline Phosphatase 119 Total Protein 8.1 Albumin 5.0 Albumin/Globulin Ratio 1.6 Lipase 51 HCG, Qual Negative Urine Color Urine Turbidity Urine pH Ur Specific [place] Urine Protein Urine Glucose (UA) Urine Ketones Urine Blood Urine Nitrite Urine Bilirubin Urine Urobilinogen Ur Leukocyte Esterase Urine WBC (Auto) Urine RBC (Auto) U Epithel Cells (Auto) 07/19/20 Unknown WBC RBC Hgb Hct MCV MCH MCHC RDW Plt Count Lymph % (Auto) [place] % (Auto) Eos % (Auto) Baso % (Auto) Lymph # (Auto) [place] # (Auto) Eos # (Auto) Baso # (Auto) Seg Neutrophils % Seg Neutrophils # Sodium Potassium Chloride Carbon Dioxide Anion Gap BUN Creatinine Estimated GFR BUN/Creatinine Ratio Glucose Calcium Magnesium Total Bilirubin AST ALT Alkaline Phosphatase Total Protein Albumin Albumin/Globulin Ratio Lipase HCG, Qual Urine Color Yellow Urine Turbidity Clear Urine pH 6.0 Ur Specific [place] 1.029 Urine Protein <15 mg/dl Urine Glucose (UA) >=500 Urine Ketones Neg Urine Blood Neg Urine Nitrite Neg Urine Bilirubin Neg Urine Urobilinogen < 2.0 Ur Leukocyte Esterase Neg Urine WBC (Auto) 1.0 Urine RBC (Auto) 1.0 U Epithel Cells (Auto) 1.0 - EKG Data EKG shows normal: sinus rhythm, axis, intervals Rate: normal - EKG Data Interpretation: normal EKG (NSR no ST Elevated MA interp by ed attending. No ekg changes since 06/2018 ) - Radiology Data Radiology results: report reviewed, image reviewed ABDOMEN 1 VIEW(S) INDICATION: LLQ pain COMPARISON: None available. FINDINGS: Bowel gas pattern: Within normal limits. No dilated loops of large or small bowel. Free air: None. Calcified gallstones: Previous cholecystectomy. Calcified urinary tract calculi: None seen. Additional Findings: None. Skeletal structures: No acute abnormality. IMPRESSION: 1. No acute findings. Signer Name: Epifanio Ahmadi MD Signed: 07/19/2020 10:33 PM Workstation Name: [id number] Transcribed By: MAURILIO Dictated By: Epifanio Ahmadi MD Electronically Authenticated By: Epifanio Ahmadi MD Signed Date/Time: 06/05/06 2232 DD/ 31 TD/TT: - Medical Decision Making KUB normal gas pattern no abnormality, labs are normal. Patient advises pain is improved with medication given in ED plan DC to self, patient will follow up with primary care doctor in 2 to 3 days as scheduled. Continue to take H2 gisel, return to emergency department should symptoms worsen. Patient given GERD diet information. Critical care attestation.: If time is entered above; I have spent that time in minutes in the direct care of this critically ill patient, excluding procedure time. ED Disposition Clinical Impression: GERD (gastroesophageal reflux disease) Qualifiers: Esophagitis presence: without esophagitis Qualified Code(s): K21.9 - Gastro- esophageal reflux disease without esophagitis Abdominal pain Qualifiers: Abdominal location: lower abdomen, unspecified Qualified Code(s): R10.30 - Lower abdominal pain, unspecified Disposition: DC-01 TO HOME OR SELFCARE Is pt being admited?: No Does the pt Need Aspirin: No Condition: Stable Instructions: Abdominal Pain (ED), Food Choices for Gastroesophageal Reflux Disease, Adult, Gastroesophageal Reflux Disease, Adult, [id number] Additional Instructions: follow up with your doctor in 2-3 days, return to emergency if symptoms worsen. Prescriptions: Sucralfate [Carafate] 1 gm PO ACHS #28 tablet Referrals: [facility] [Provider Group] - 3-5 Days Forms: Work/School Release Form(ED) Time of Disposition: 23:11
--- NOTE | 2020-07-19 22:37 | XRay Report ---
ABDOMEN 1 VIEW(S) INDICATION: LLQ pain COMPARISON: None available. FINDINGS: Bowel gas pattern: Within normal limits. No dilated loops of large or small bowel. Free air: None. Calcified gallstones: Previous cholecystectomy. Calcified urinary tract calculi: None seen. Additional Findings: None. Skeletal structures: No acute abnormality. IMPRESSION: 1. No acute findings. Signer Name: Epifanio Ahmadi MD Signed: 07/19/2020 10:33 PM Workstation Name: [id number]
[2020-07-20 00:16] VITALS: BP 174/82
--- NOTE | 2020-07-23 10:34 | Electrocardiograph Report ---
[facility] Test Date: 2020-07-19 Test Time: 17:56:32 Pat Name: HAIR MCCAIN Department: Room: Gender: F Bisque [employer]er: SAMMY : 1970 Requested By: CONNIE COOK Order Number: [id number] Reading MD: Kaveh Beckford Measurements Intervals [place] Rate: 76 P: 0 NH: 181 QRS: -23 QRSD: 100 T: -24 QT: 387 QTc: 435 Interpretive Statements Sinus rhythm Consider anterior infarct No previous ECG available for comparison Electronically Signed On 07-23-2020 10:33:31 EDT by Kaveh Beckford
== END 2020-07-19 23:35 | disposition home or self-care (01) ==
LOC: ED 14:11
DX: K21.9 Gastro-esophageal reflux disease without esophagitis (principal); R10.31 Right lower quadrant pain; I10 Essential (primary) hypertension; E11.9 Type 2 diabetes mellitus without complications; G43.909 Migraine, unspecified, not intractable, without status migrainosus; J45.909 Unspecified asthma, uncomplicated; Z90.49 Acquired absence of other specified parts of digestive tract; Z98.890 Other specified postprocedural states; Z79.84 Long term (current) use of oral hypoglycemic drugs; Z79.899 Other long term (current) drug therapy; Z88.8 Allergy status to other drugs, medicaments and biological substances
CPT/HCPCS: 36415; 74018; 80053; 81001; 83690; 83735; 84484; 84703; 85025; 93005

== ENCOUNTER 2020-11-15 16:54 | Emergency (ER) | payer OTHER ==
[2020-11-15 17:23] VITALS: BP 148/83
--- NOTE | 2020-11-15 17:42 | Emergency Department Report ---
ED General Adult HPI - General Chief complaint: Hyperglycemia Stated complaint: DIABETIC, BODYACHES Time Seen by Provider: 11/15/20 17:28 Source: patient Mode of arrival: Ambulatory Limitations: No Limitations - History of Present Illness Initial comments: 50-year-old female, history of diabetes, fibromyalgia, presents to ED with complaint of elevated glucose and possibly low potassium. Patient states that she saw her PCP on Thursday to get a refill of her insulin, however the pharmacy did not have her insulin available. Patient states she was taking 10 units instead of her usual 20 units/day until yesterday when she was able to get the prescription filled. During the days when she was taking half dose of her insulin patient states her glucose have been running in the 300s to 400s. Today, patient able to take her usual 20 units of insulin. Accu-Chek is currently 196 at triage. However, patient reports feeling achy all over. She states the last time that this happened was when she was taking a half dose of her insulin and then restarted it at the normal dose. She states as result her potassium was very low. -: This afternoon Quality: aching Consistency: constant Improves with: none Worsens with: none Associated Symptoms: denies: fever/chills, nausea/vomiting, shortness of breath Treatments Prior to Arrival: none - Related Data Home Medications Medication Instructions Recorded Confirmed Last Taken hydroCHLOROthiazide [HCTZ] 25 mg PO DAILY 03/20/16 04/02/18 06/17/16 Beclomethasone Dipropionate [Qvar] 2 puff IH QDAY 06/17/16 04/02/18 06/17/16 Metoprolol Succinate [Toprol Xl] 50 mg PO QDAY 04/02/18 04/02/18 Unknown Pantoprazole [Protonix TAB] 40 mg PO DAILY 04/02/18 04/02/18 Unknown Previous Rx's Medication Instructions Recorded Last Taken Type Gabapentin [Neurontin] 400 mg PO TID #90 capsule 04/03/18 Unknown Rx metFORMIN [Glucophage] 500 mg PO BIDDIAB #60 tablet 04/03/18 Unknown Rx Sucralfate [Carafate] 1 gm PO ACHS #28 tablet 07/19/20 Unknown Rx Allergies Allergy/AdvReac Type Severity Reaction Status Date / Time acetaminophen [From Percocet] Allergy Nausea,VOMI Verified 06/17/16 11:43 TING aspirin Allergy Dizziness Verified 06/17/16 11:43 latex Allergy Rash Verified 06/17/16 11:43 naproxen [From Naprosyn] Allergy Rash Verified 06/17/16 11:43 oxycodone HCl [From Percocet] Allergy Nausea,VOMI Verified 06/17/16 11:43 TING Sulfa (Sulfonamide Allergy Vomiting Verified 06/17/16 11:43 Antibiotics) ED Review of Systems ROS: Stated complaint: DIABETIC, BODYACHES Other details as noted in HPI Comment: All other systems reviewed and negative Constitutional: denies: fever Respiratory: denies: shortness of breath Cardiovascular: denies: chest pain Gastrointestinal: denies: nausea, vomiting Musculoskeletal: myalgia ED Past Medical Hx - Past Medical History Previous Medical History?: Yes Hx Hypertension: Yes 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 TIA OCT 2015. neuropathy. fibromyalgia - Surgical History Hx Cholecystectomy: Yes Additional Surgical History: R shoulder surgery - Social History Smoking Status: Never Smoker - Medications Home Medications: Home Medications Medication Instructions Recorded Confirmed Last Taken Type hydroCHLOROthiazide [HCTZ] 25 mg PO DAILY 03/20/16 04/02/18 06/17/16 History Beclomethasone Dipropionate [Qvar] 2 puff IH QDAY 06/17/16 04/02/18 06/17/16 History Metoprolol Succinate [Toprol Xl] 50 mg PO QDAY 04/02/18 04/02/18 Unknown History Pantoprazole [Protonix TAB] 40 mg PO DAILY 04/02/18 04/02/18 Unknown History Gabapentin [Neurontin] 400 mg PO TID #90 capsule 04/03/18 Unknown Rx metFORMIN [Glucophage] 500 mg PO BIDDIAB #60 tablet 04/03/18 Unknown Rx Sucralfate [Carafate] 1 gm PO ACHS #28 tablet 07/19/20 Unknown Rx ED Physical Exam - General Limitations: No Limitations General appearance: alert, in no apparent distress, obese - Head Head exam: Present: atraumatic, normocephalic - Eye Eye exam: Present: normal appearance, EOMI - ENT ENT exam: Present: mucous membranes moist - Neck Neck exam: Present: normal inspection - Respiratory Respiratory exam: Present: normal lung sounds bilaterally. Absent: respiratory distress - Cardiovascular Cardiovascular Exam: Present: regular rate, normal rhythm - GI/Abdominal GI/Abdominal exam: Absent: distended - Extremities Exam Extremities exam: Present: normal inspection - Neurological Exam Neurological exam: Present: alert, oriented X3 - Psychiatric Psychiatric exam: Present: normal affect, normal mood - Skin Skin exam: Present: warm, dry, intact, normal color ED Course Vital Signs 11/15/20 17:21 Temperature 98.6 F Pulse Rate 92 H Respiratory 18 Rate Blood Pressure 148/83 [Left] O2 Sat by Pulse 97 Oximetry ED Medical Decision Making - Lab Data Result diagrams: 11/15/20 17:47 - Differential Diagnosis Hyperglycemia, DKA, hyperkalemia Critical care attestation.: If time is entered above; I have spent that time in minutes in the direct care of this critically ill patient, excluding procedure time. ED Disposition Clinical Impression: Hypokalemia Disposition: 01 HOME / SELF CARE / HOMELESS Is pt being admited?: No Condition: Stable Instructions: Hypokalemia, Potassium Content of Foods Referrals: PRIMARY CARE, [Primary Care Provider] - 3-5 Days Time of Disposition: 18:48
[2020-11-15 18:24] LABS: Blood Urea Nitrogen 14 mg/dL (7-17); Calcium 10.3 mg/dL (8.4-10.2); Hemolysis Index 12
[2020-11-15 18:25] LABS: BUN/Creatinine Ratio 23
[2020-11-15] MEDS ORDERED: POTASSIUM CHLORIDE ER 20 MEQ TAB PO ONE (18:35)
== END 2020-11-15 19:28 | disposition home or self-care (01) ==
LOC: ED 16:54
DX: E87.6 Hypokalemia (principal); I10 Essential (primary) hypertension; Z86.73 Personal history of transient ischemic attack (TIA), and cerebral infarction without residual deficits; E11.8 Type 2 diabetes mellitus with unspecified complications; G43.909 Migraine, unspecified, not intractable, without status migrainosus; J45.909 Unspecified asthma, uncomplicated; E78.5 Hyperlipidemia, unspecified; M79.7 Fibromyalgia; G62.9 Polyneuropathy, unspecified; Z98.890 Other specified postprocedural states; Z88.2 Allergy status to sulfonamides; Z88.5 Allergy status to narcotic agent; Z88.6 Allergy status to analgesic agent; Z91.040 Latex allergy status
CPT/HCPCS: 36415; 80048; 82962; 99283

== ENCOUNTER 2021-03-29 14:54 | Emergency (ER) | payer OTHER ==
--- NOTE | 2021-03-29 17:07 | Event Note ---
ED Screening Note ED Screening Note: 50-year-old female presents to the ED complaining of chest pain after visiting her PCP. States that she was given given nitroglycerin x2 by EMS in route that relieve chest pain. Patient states the chest pain is occurring 5 out of 10 at present. She denies any shortness of breath or abdominal pain at present. This initial assessment/diagnostic orders/clinical plan/treatment(s) is/are subject to change based on patients health status, clinical progression and re- assessment by fellow clinical providers in the ED. Further treatment and workup at subsequent clinical providers discretion. Patient/guardian urged not to elope from the ED as their condition may be serious if not clinically assessed and m anaged. Initial orders include: EKG, lab and chest x-ray
--- NOTE | 2021-03-29 17:31 | XRay Report ---
CHEST 2 VIEWS INDICATION / CLINICAL INFORMATION: Chest Pain. COMPARISON: 04/02/18. FINDINGS: SUPPORT DEVICES: None. HEART / MEDIASTINUM: The heart size and pulmonary vasculature are normal. The aorta is normal in gregorio ousmane. LUNGS / PLEURA: No significant pulmonary or pleural abnormality. No pneumothorax. ADDITIONAL FINDINGS: No significant additional findings. IMPRESSION: No acute abnormality or significant change. Signer Name: Serg Stoddard MD Signed: 03/29/2021 5:27 PM Workstation Name: [id number]
[2021-03-29] MEDS ORDERED: ONDANSETRON 4 MG/2 ML INJ IV ONE (18:25)
[2021-03-29] MEDS ORDERED: NITROGLYCERIN 0.4 MG TAB SUBL SL PRN (18:26)
[2021-03-29] MEDS ORDERED: PANTOPRAZOLE 40 MG INJ IV ONE (18:26)
--- NOTE | 2021-03-29 18:27 | Emergency Department Report ---
ED Chest Pain HPI - General Chief Complaint: Chest Pain Stated Complaint: CHEST PAIN PUI?: No Time Seen by Provider: 03/29/21 17:48 Source: patient, RN notes reviewed, old records reviewed Mode of arrival: Ambulatory Limitations: No Limitations - History of Present Illness Initial Comments: The patient was evaluated in the emergency department for symptoms described in the history of present illness. He/she was evaluated in the context of the global COVID-19 pandemic, which necessitated consideration that the patient might be at risk for infection with the virus that causes COVID-19. Institutional protocols and algorithms that pertain to the evaluation of patients at risk for COVID-19 are in a state of rapid change based on information released by regulatory bodies including the CDC and federal and state organizations. These policies and algorithms were followed during the patient's care in the emergency department. Please note that these policies, procedures and recommendations changed on a rapid basis. The patient is a 50-year-old female. Her past medical history includes obesity, hypertension, diabetes, asthma, migraines, neuropathy and fibromyalgia. She also has a history of provoked thromboembolism secondary to surgery a few years ago, and is not currently on systemic anticoagulation. She also reports a history of stroke/TIA. She will also reports a history of GERD/reflux. The patient presents to the ER today with a complaint of chest pain which is central and bilateral anterior chest wall, that radiates to the back, associate with shortness of breath, and left upper extremity numbness. She endorses chronic lower extremity swelling which appears to be at her baseline. She was given aspirin by her primary care doctor earlier on today. She reports this does not feel similar to asthma, or GERD/reflux. No vomiting or diaphoresis. No recent cardiac risk ratification. Also endorses mild headache secondary to nitroglycerin. MD Complaint: chest pain -: Gradual, hour(s) Onset: during rest Pain Location: substernal, left chest, right chest Pain Radiation: LUE, back Quality: aching, heaviness Consistency: constant Improves With: rest Worsens With: palpation Aspirin use within the Past 7 Days: (1) Yes - Related Data Home Medications Medication Instructions Recorded Confirmed Last Taken hydroCHLOROthiazide [HCTZ] 25 mg PO DAILY 03/20/16 04/02/18 06/17/16 Beclomethasone Dipropionate [Qvar] 2 puff IH QDAY 06/17/16 04/02/18 06/17/16 Metoprolol Succinate [Toprol Xl] 50 mg PO QDAY 04/02/18 04/02/18 Unknown Pantoprazole [Protonix TAB] 40 mg PO DAILY 04/02/18 04/02/18 Unknown Previous Rx's Medication Instructions Recorded Last Taken Type Gabapentin [Neurontin] 400 mg PO TID #90 capsule 04/03/18 Unknown Rx metFORMIN [Glucophage] 500 mg PO BIDDIAB #60 tablet 04/03/18 Unknown Rx Sucralfate [Carafate] 1 gm PO ACHS #28 tablet 07/19/20 Unknown Rx Allergies Allergy/AdvReac Type Severity Reaction Status Date / Time acetaminophen [From Percocet] Allergy Nausea,VOMI Verified 03/29/21 15:51 TING aspirin Allergy Dizziness Verified 03/29/21 15:51 latex Allergy Rash Verified 03/29/21 15:51 naproxen [From Naprosyn] Allergy Rash Verified 03/29/21 15:51 oxycodone HCl [From Percocet] Allergy Nausea,VOMI Verified 03/29/21 15:51 TING Sulfa (Sulfonamide Allergy Vomiting Verified 03/29/21 15:51 Antibiotics) Heart Score - HEART Score History: Moderately suspicious EKG: Non-specific Age: 45-65 Risk factors: > 3 risk factors or hx of atherosclerotic disease Troponin: < normal limit HEART Score: 5 - EKG Read Time Time EKG Completed: 15:45 EKG Read Time: 15:45 - Critical Actions Critical Actions: 4-6 pts:12-16.6% risk of adverse cardiac event. Should be admitted ED Review of Systems ROS: Stated complaint: CHEST PAIN Other details as noted in HPI Constitutional: malaise. denies: fever Eyes: denies: eye discharge Respiratory: shortness of breath. denies: cough Cardiovascular: chest pain Gastrointestinal: denies: abdominal pain, vomiting Musculoskeletal: back pain, myalgia Neurological: headache, weakness Psychiatric: anxiety Hematological/Lymphatic: denies: easy bleeding ED Past Medical Hx - Past Medical History Hx Hypertension: Yes 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 TIA OCT 2015. neuropathy. fibromyalgia - Surgical History Hx Cholecystectomy: Yes Additional Surgical History: R shoulder surgery - Social History Smoking Status: Never Smoker - Medications Home Medications: Home Medications Medication Instructions Recorded Confirmed Last Taken Type hydroCHLOROthiazide [HCTZ] 25 mg PO DAILY 03/20/16 04/02/18 06/17/16 History Beclomethasone Dipropionate [Qvar] 2 puff IH QDAY 06/17/16 04/02/18 06/17/16 History Metoprolol Succinate [Toprol Xl] 50 mg PO QDAY 04/02/18 04/02/18 Unknown History Pantoprazole [Protonix TAB] 40 mg PO DAILY 04/02/18 04/02/18 Unknown History Gabapentin [Neurontin] 400 mg PO TID #90 capsule 04/03/18 Unknown Rx metFORMIN [Glucophage] 500 mg PO BIDDIAB #60 tablet 04/03/18 Unknown Rx Sucralfate [Carafate] 1 gm PO ACHS #28 tablet 07/19/20 Unknown Rx ED Physical Exam - General Limitations: No Limitations General appearance: alert, anxious, obese - Head Head exam: Present: atraumatic, normocephalic - Eye Eye exam: Present: normal appearance, EOMI. Absent: nystagmus - ENT ENT exam: Present: normal exam, normal orophraynx, mucous membranes moist, normal external ear exam - Neck Neck exam: Present: normal inspection, full ROM. Absent: meningismus - Respiratory Respiratory exam: Present: normal lung sounds bilaterally, chest wall tenderness. Absent: respiratory distress, wheezes, rales, rhonchi, stridor, decreased breath sounds - Cardiovascular Cardiovascular Exam: Present: regular rate, normal rhythm, normal heart sounds. Absent: bradycardia, tachycardia, irregular rhythm, systolic murmur, diastolic murmur, rubs, gallop - GI/Abdominal GI/Abdominal exam: Present: soft. Absent: distended, tenderness, guarding, rebound, rigid, pulsatile mass - Extremities Exam Extremities exam: Present: normal inspection, full ROM, pedal edema, other (2+ pulses noted in the bilateral upper and lower extremities. There is no palpable cord. negative Homans sign. Muscular compartments are soft. The pelvis is stable.). Absent: calf tenderness - Back Exam Back exam: Present: normal inspection, full ROM. Absent: tenderness, CVA tenderness (R), CVA tenderness (L), paraspinal tenderness, vertebral tenderness - Neurological Exam Neurological exam: Present: alert, oriented X3, other (No facial droop. Tongue midline. Extraocular movements intact bilaterally. Facial sensation intact to light touch in V1, V2, V3 distribution bilaterally. 5 and a 5 strength in 4 extremities. Sensation intact to light touch in 4 extremities.). Absent: motor sensory deficit - Psychiatric Psychiatric exam: Present: anxious - Skin Skin exam: Present: warm, dry, intact, normal color. Absent: rash ED Course Vital Signs 03/29/21 03/29/21 19:19 19:39 Pulse Rate 74 68 Respiratory 16 Rate Blood Pressure 134/76 Blood Pressure 117/65 [Left] O2 Sat by Pulse 95 Oximetry - Reevaluation(s) Reevaluation #1: 03/29/21 18:48 Differential diagnosis, including the not limited to: Costochondritis, GERD, gastritis, hiatal hernia, pneumonia, pulmonary embolism, aortic dissection Assessment and plan: 50-year-old female, presenting with chest pain that moves to the left upper extremity, and to the back. Patient moderate risk for major adverse cardiac event as per heart score. She is moderate pretest probability for pulmonary embolism. We will treat her symptoms, and obtain CT scan of the chest. Her EKG is morphologically unchanged from prior. Troponin negative x1. She has received aspirin today at her primary care doctor's office. Have recommended admission to the medical service for cardiac risk ratification, presuming CT scan of the chest is unremarkable for acute findings. Patient is agreeable to this plan of care. Reassess after acquisition of laboratory studies, CT scan of the chest, vital signs. 03/29/21 19:49 CTA chest negative for acute findings. Troponin negative. Patient agreeable to admission hospitalization. Hospital physician, Dr. Gisselle Chambers to admit to [facility] MANN score - Mann Score Age > 65: (0) No Aspirin use within the Past 7 Days: (1) Yes 3 or more CAD Risk Factors: (1) Yes 2 or more Angina events in past 24 hrs: (1) Yes Known CAD with more than 50% Stenosis: (0) No Elevated Cardiac Markers: (0) No ST Deviation Greater than 0.5mm: (0) No MANN Score: 3 ED Medical Decision Making - Lab Data Result diagrams: 03/29/21 17:37 03/29/21 17:37 Lab Results 03/29/21 Range/Units 17:37 Sodium 138 (137-145) mmol/L Potassium 4.2 (3.6-5.0) mmol/L Chloride 98.5 (98-107) mmol/L Carbon Dioxide 21 L (22-30) mmol/L Anion Gap 23 mmol/L BUN 11 (7-17) mg/dL Creatinine 0.9 (0.6-1.2) mg/dL Estimated GFR > 60 ml/min BUN/Creatinine Ratio 12 % Glucose 145 H (65-100) mg/dL Calcium 10.0 (8.4-10.2) mg/dL Total Bilirubin 0.60 (0.1-1.2) mg/dL AST 47 H (5-40) units/L ALT 43 (7-56) units/L Alkaline Phosphatase 106 (35-129) units/L Troponin T < 0.010 (0.00-0.029) ng/mL Total Protein 7.9 (6.3-8.2) g/dL Albumin 4.8 (3.9-5) g/dL Albumin/Globulin Ratio 1.5 % Lipase 41 (13-60) units/L - EKG Data -: EKG Interpreted by Nv EKG shows normal: sinus rhythm Rate: normal - EKG Data 03/29/21 18:47 The EKG today is interpreted at 15: 45 Sinus rhythm, rate 80 bpm. Left axis deviation, left anterior fascicular block, high left ventricular voltage/left ventricular hypertrophy. QTC 4 3 8 ms. WA interval 1 9 3 ms. Unchanged from prior EKG. Not a STEMI. - Radiology Data Radiology results: report reviewed, image reviewed CHEST 2 VIEWS INDICATION / CLINICAL INFORMATION: Chest Pain. COMPARISON: 04/02/18. FINDINGS: SUPPORT DEVICES: None. HEART / MEDIASTINUM: The heart size and pulmonary vasculature are normal. The aorta is normal in caliber. LUNGS / PLEURA: No significant pulmonary or pleural abnormality. No pneumothorax. ADDITIONAL FINDINGS: No significant additional findings. IMPRESSION: No acute abnormality or significant change. Signer Name: Serg Stoddard MD Signed: 03/29/2021 4:27 PM Workstation Name: [id number] CTA CHEST WITH IV CONTRAST INDICATION: acute chest pain 100 ml omni 350. TECHNIQUE: Axial CT images were obtained through the chest after injection of 100 cc Omni 350 IV contrast. 3 plane MIP reconstructions were produced. All CT scans at this location are performed using CT dose reduction for ALARA by means of automated exposure control. COMPARISON: CTA chest 07/04/2016 FINDINGS: PULMONARY ARTERIES: No pulmonary emboli. THORACIC AORTA: No acute abnormality. HEART: Normal. CORONARY ARTERIES: No significant calcification. PLEURA: No pleural effusion. No pneumothorax. LYMPH NODES: No significant adenopathy. LUNGS: No acute air space or interstitial disease. ADDITIONAL FINDINGS: None. UPPER ABDOMEN: Moderate hepatic steatosis. Gallbladder surgically absent. SKELETAL STRUCTURES: No significant osseous abnormality. IMPRESSION: 1. No CT evidence for pulmonary embolism. 2. No acute findings. Signer Name: Waqar Gray MD Signed: 03/29/2021 6:20 PM Workstation Name: [id number] Critical care attestation.: If time is entered above; I have spent that time in minutes in the direct care of this critically ill patient, excluding procedure time. ED Disposition Clinical Impression: Acute chest pain, Peripheral neuropathy, Obesity Disposition: 09 ADMITTED INPATIENT Is pt being admited?: Yes Does the pt Need Aspirin: No Condition: Good Instructions: Chest Pain (ED) Referrals: PRIMARY CARE, [Primary Care Provider] - 3-5 Days
[2021-03-29 18:31] LABS: Alanine Aminotransferase 43 units/L (7-56); Albumin 4.8 g/dL (3.9-5); BUN/Creatinine Ratio 12; Blood Urea Nitrogen 11 mg/dL (7-17); Hemolysis Index 6
[2021-03-29] MEDS ORDERED: diphenhydrAMINE 50 MG/ML VIAL IV ONE (18:50)
[2021-03-29] MEDS ORDERED: METOCLOPRAMIDE 10 MG/2 ML INJ IV ONE (18:50)
[2021-03-29 18:57] LABS: Basophils % (Auto) 0.5 % (0.0-1.8); Eosinophils # (Auto) 0.2 K/mm3 (0.0-0.4); Eosinophils % (Auto) 3.2 % (0.0-4.3); Hematocrit 40.9 % (30.3-42.9); Hemoglobin 13.7 gm/dl (10.1-14.3); Lymphocytes % (Auto) 32.5 % (13.4-35.0); Mean Corpuscular HGB Conc 33 % (30-34); Mean Corpuscular Volume 93 fl (79-97); Monocytes # (Auto) 0.4 K/mm3 (0.0-0.8); Monocytes % (Auto) 5.9 % (0.0-7.3); Platelet Count 236 K/mm3 (140-440); Red Blood Count 4.38 M/mm3 (3.65-5.03); Red Cell Distribution Width 14.4 % (13.2-15.2)
--- NOTE | 2021-03-29 19:25 | Cat Scan Report ---
CTA CHEST WITH IV CONTRAST INDICATION: acute chest pain 100 ml omni 350. TECHNIQUE: Axial CT images were obtained through the chest after injection of 100 cc Omni 350 IV contrast. 3 zahida ne MIP reconstructions were produced. All CT scans at this location are performed using CT dose reduc tion for ALARA by means of automated exposure control. COMPARISON: CTA chest 07/04/2016 FINDINGS: PULMONARY ARTERIES: No pulmonary emboli. THORACIC AORTA: No acute abnormality. HEART: Normal. CORONARY ARTERIES: No significant calcification. PLEURA: No pleural effusion. No pneumothorax. LYMPH NODES: No significant adenopathy. LUNGS: No acute air space or interstitial disease. ADDITIONAL FINDINGS: None. UPPER ABDOMEN: Moderate hepatic steatosis. Gallbladder surgically absent. SKELETAL STRUCTURES: No significant osseous abnormality. IMPRESSION: 1. No CT evidence for pulmonary embolism. 2. No acute findings. Signer Name: Waqar Gray MD Signed: 03/29/2021 7:20 PM Workstation Name: [id number]
[2021-03-29 19:48] VITALS: BP 134/76
--- NOTE | 2021-03-29 22:10 | History and Physical Report ---
History of Present Illness Date of examination: 03/29/21 Date of admission: 03/29/21 Chief complaint: Chest pain since a.m. History of present illness: 50-year-old female with history of hypertension, diabetes, asthma, peripheral neuropathy and fibromyalgia comes in for left-sided chest pain which is retrosternal and left precordial. Radiating to the back. Some shortness of breath. No diaphoresis no nausea no vomiting. Patient also has chronic lower e xtremity swelling. Which appears to be her baseline. Patient has a primary care physician and a court bailiff or sheriff. Patient unable to name the court bailiff or sheriff. Patient also has a history of GERD and reflux. Chest pain is about 5 on a scale of 1-10. No exacerbating or relieving factors. - Past Medical History --Hypertension: Yes --CVA: Yes (weakness on right side) --Diabetes: Yes (border line diet controlled) --Headaches / Migraines: Yes (MIGRAINES) --Asthma: Yes Additional medical history: Hyperlipidemia. TIA OCT 2015. neuropathy. fibromyalgia - Surgical History --Cholecystectomy: Yes Additional Surgical History: R shoulder surgery - Social History Smoking Status: Never Smoker - Medications Home Medications: Home Medications Medication Instructions Recorded Confirmed Last Taken Type hydroCHLOROthiazide [HCTZ] 25 mg PO DAILY 03/20/16 04/02/18 06/17/16 History Beclomethasone Dipropionate [Qvar] 2 puff IH QDAY 06/17/16 04/02/18 06/17/16 History Metoprolol Succinate [Toprol Xl] 50 mg PO QDAY 04/02/18 04/02/18 Unknown History Pantoprazole [Protonix TAB] 40 mg PO DAILY 04/02/18 04/02/18 Unknown History Gabapentin [Neurontin] 400 mg PO TID #90 capsule 04/03/18 Unknown Rx metFORMIN [Glucophage] 500 mg PO BIDDIAB #60 tablet 04/03/18 Unknown Rx Sucralfate [Carafate] 1 gm PO ACHS #28 tablet 07/19/20 Unknown Rx Review of Systems ROS: Stated complaint: CHEST PAIN Other details as noted in HPI Constitutional: malaise. denies: fever Eyes: denies: eye discharge Respiratory: shortness of breath. denies: cough Cardiovascular: chest pain Gastrointestinal: denies: abdominal pain, vomiting Musculoskeletal: back pain, myalgia Neurological: headache, weakness Psychiatric: anxiety Hematological/Lymphatic: denies: easy bleeding Medications and Allergies Allergies Allergy/AdvReac Type Severity Reaction Status Date / Time acetaminophen [From Percocet] Allergy Nausea,VOMI Verified 03/29/21 15:51 TING aspirin Allergy Dizziness Verified 03/29/21 15:51 latex Allergy Rash Verified 03/29/21 15:51 naproxen [From Naprosyn] Allergy Rash Verified 03/29/21 15:51 oxycodone HCl [From Percocet] Allergy Nausea,VOMI Verified 03/29/21 15:51 TING Sulfa (Sulfonamide Allergy Vomiting Verified 03/29/21 15:51 Antibiotics) Home Medications Medication Instructions Recorded Confirmed Last Taken Type hydroCHLOROthiazide [HCTZ] 25 mg PO DAILY 03/20/16 04/02/18 06/17/16 History Beclomethasone Dipropionate [Qvar] 2 puff IH QDAY 06/17/16 04/02/18 06/17/16 History Metoprolol Succinate [Toprol Xl] 50 mg PO QDAY 04/02/18 04/02/18 Unknown History Pantoprazole [Protonix TAB] 40 mg PO DAILY 04/02/18 04/02/18 Unknown History Gabapentin [Neurontin] 400 mg PO TID #90 capsule 04/03/18 Unknown Rx metFORMIN [Glucophage] 500 mg PO BIDDIAB #60 tablet 04/03/18 Unknown Rx Sucralfate [Carafate] 1 gm PO ACHS #28 tablet 07/19/20 Unknown Rx Active Meds: Active Medications Nitroglycerin (Nitroglycerin 0.4 Mg Tab Subl) 0.4 mg SL .Q5MIN PRN PRN Reason: Chest Pain Last Admin: 03/29/21 19:19 Dose: 0.4 mg Exam - Constitutional Vitals: Temp Pulse Resp BP Pulse Ox 68 16 117/65 95 03/29/21 19:39 03/29/21 19:39 03/29/21 19:39 03/29/21 19:39 General appearance: Present: no acute distress, well-nourished - EENT Eyes: Present: PERRL ENT: hearing intact, clear oral mucosa - Neck Neck: Present: supple, normal ROM - Respiratory Respiratory effort: normal Respiratory: bilateral: CTA Details: Chest wall tenderness present. - Cardiovascular Rhythm: regular Heart Sounds: Present: S1 & S2. Absent: rub, click - Extremities Extremities: pulses symmetrical, No edema Peripheral Pulses: within normal limits - Abdominal General gastrointestinal: Present: soft, non-tender, non-distended, normal bowel sounds Female genitourinary: Present: normal - Integumentary Integumentary: Present: clear, warm, dry - Musculoskeletal Musculoskeletal: gait normal, strength equal bilaterally - Psychiatric Psychiatric: appropriate mood/affect, intact judgment & insight - Neurologic Neurologic: CNII-XII intact, moves all extremities HEART Score - HEART Score EKG: Non-specific Age: 45-65 Risk factors: > 3 risk factors or hx of atherosclerotic disease Troponin: Troponin T < 0.010 ng/mL (0.00-0.029) 03/29/21 17:37 Troponin: < normal limit - Critical Actions Critical Actions: 4-6 pts:12-16.6% risk of adverse cardiac event. Should be admitted Results - Labs CBC & Chem 7: 03/29/21 17:37 03/29/21 17:37 Labs: Laboratory Last Values WBC 6.0 K/mm3 (4.5-11.0) 03/29/21 17:37 RBC 4.38 M/mm3 (3.65-5.03) 03/29/21 17:37 Hgb 13.7 gm/dl (10.1-14.3) 03/29/21 17:37 Hct 40.9 % (30.3-42.9) 03/29/21 17:37 MCV 93 fl (79-97) 03/29/21 17:37 MCH 31 pg (28-32) 03/29/21 17:37 MCHC 33 % (30-34) 03/29/21 17:37 RDW 14.4 % (13.2-15.2) 03/29/21 17:37 Plt Count 236 K/mm3 (140-440) 03/29/21 17:37 Lymph % (Auto) 32.5 % (13.4-35.0) 03/29/21 17:37 [place] % (Auto) 5.9 % (0.0-7.3) 03/29/21 17:37 Eos % (Auto) 3.2 % (0.0-4.3) 03/29/21 17:37 Baso % (Auto) 0.5 % (0.0-1.8) 03/29/21 17:37 Lymph # (Auto) 2.0 K/mm3 (1.2-5.4) 03/29/21 17:37 [place] # (Auto) 0.4 K/mm3 (0.0-0.8) 03/29/21 17:37 Eos # (Auto) 0.2 K/mm3 (0.0-0.4) 03/29/21 17:37 Baso # (Auto) 0.0 K/mm3 (0.0-0.1) 03/29/21 17:37 Seg Neutrophils % 57.9 % (40.0-70.0) 03/29/21 17:37 Seg Neutrophils # 3.5 K/mm3 (1.8-7.7) 03/29/21 17:37 D-Dimer 175.06 ng/mlDDU (0-234) 03/29/21 17:37 Sodium 138 mmol/L (137-145) 03/29/21 17:37 Potassium 4.2 mmol/L (3.6-5.0) 03/29/21 17:37 Chloride 98.5 mmol/L (98-107) 03/29/21 17:37 Carbon Dioxide 21 mmol/L (22-30) L 03/29/21 17:37 Anion Gap 23 mmol/L 03/29/21 17:37 BUN 11 mg/dL (7-17) 03/29/21 17:37 Creatinine 0.9 mg/dL (0.6-1.2) 03/29/21 17:37 Estimated GFR > 60 ml/min 03/29/21 17:37 BUN/Creatinine Ratio 12 % 03/29/21 17:37 Glucose 145 mg/dL (65-100) H 03/29/21 17:37 Calcium 10.0 mg/dL (8.4-10.2) 03/29/21 17:37 Total Bilirubin 0.60 mg/dL (0.1-1.2) 03/29/21 17:37 AST 47 units/L (5-40) H 03/29/21 17:37 ALT 43 units/L (7-56) 03/29/21 17:37 Alkaline Phosphatase 106 units/L (35-129) 03/29/21 17:37 Troponin T < 0.010 ng/mL (0.00-0.029) 03/29/21 17:37 Total Protein 7.9 g/dL (6.3-8.2) 03/29/21 17:37 Albumin 4.8 g/dL (3.9-5) 03/29/21 17:37 Albumin/Globulin Ratio 1.5 % 03/29/21 17:37 Lipase 41 units/L (13-60) 03/29/21 17:37 Short CBC 03/29/21 Range/Units 17:37 WBC 6.0 (4.5-11.0) K/mm3 Hgb 13.7 (10.1-14.3) gm/dl Hct 40.9 (30.3-42.9) % Plt Count 236 (140-440) K/mm3 [facility] 03/29/21 17:37 Sodium 138 Potassium 4.2 Chloride 98.5 Carbon Dioxide 21 L BUN 11 Creatinine 0.9 Glucose 145 H Calcium 10.0 Cardiac Enzymes 03/29/21 Range/Units 17:37 Troponin T < 0.010 (0.00-0.029) ng/mL Liver Function 03/29/21 Range/Units 17:37 Total Bilirubin 0.60 (0.1-1.2) mg/dL AST 47 H (5-40) units/L ALT 43 (7-56) units/L Alkaline Phosphatase 106 (35-129) units/L Albumin 4.8 (3.9-5) g/dL Short CBC 03/29/21 Range/Units 17:37 WBC 6.0 (4.5-11.0) K/mm3 Hgb 13.7 (10.1-14.3) gm/dl Hct 40.9 (30.3-42.9) % Plt Count 236 (140-440) K/mm3 [facility] 03/29/21 17:37 Sodium 138 Potassium 4.2 Chloride 98.5 Carbon Dioxide 21 L BUN 11 Creatinine 0.9 Glucose 145 H Calcium 10.0 Cardiac Enzymes 03/29/21 03/29/21 Range/Units 17:37 23:19 Troponin T < 0.010 < 0.010 (0.00-0.029) ng/mL Liver Function 03/29/21 Range/Units 17:37 Total Bilirubin 0.60 (0.1-1.2) mg/dL AST 47 H (5-40) units/L ALT 43 (7-56) units/L Alkaline Phosphatase 106 (35-129) units/L Albumin 4.8 (3.9-5) g/dL Assessment and Plan Advance Directives: Yes (full code) VTE prophylaxis?: Chemical Plan of care discussed with patient/family: Yes - Patient Problems (1) Acute coronary syndrome Current Visit: Yes Status: Acute Plan to address problem: Atypical chest pain. Chest wall tenderness present. First troponin is negative. Patient is free of chest pain. (2) Hypertension Current Visit: Yes Status: Chronic Qualifiers: Hypertension type: primary hypertension Qualified Code(s): I10 - Essential (primary) hypertension Plan to address problem: Continue antihypertensives and adjust medications. (3) T2DM (type 2 diabetes mellitus) Current Visit: Yes Status: Chronic Qualifiers: Diabetes mellitus long-term insulin use: without long-term use Diabetes mellitus complication status: without complication Qualified Code(s): E11.9 - Type 2 diabetes mellitus without complications Plan to address problem: Continue Metformin and coverage. (4) GERD (gastroesophageal reflux disease) Current Visit: Yes Status: Chronic Qualifiers: Esophagitis presence: without esophagitis Qualified Code(s): K21.9 - Gastro-esophageal reflux disease without esophagitis Plan to address problem: Continue PPIs. (5) DVT prophylaxis Current Visit: Yes Status: Acute Plan to address problem: On anticoagulation GI prophylaxis.
[2021-03-29] MEDS ORDERED: oxyCODONE /ACETAMINOPHEN 5-325MG TAB PO PRN (22:31)
[2021-03-29] MEDS ORDERED: ONDANSETRON 4 MG/2 ML INJ IV PRN (22:31)
[2021-03-29] MEDS ORDERED: ACETAMINOPHEN 325 MG TAB PO PRN (22:31)
[2021-03-29] MEDS ORDERED: HYDROmorphone 1 MG/1 ML INJ IV PRN (22:31)
[2021-03-29] MEDS ORDERED: SODIUM CHLORIDE 0.9% 1000 ML 1,000 ML IV SCH (23:00)
--- NOTE | 2021-03-29 23:31 | Discharge Summary ---
Providers - Providers Date of discharge: 03/29/21 Attending physician: Trish Mcdowell Primary care physician: POLYETHYLENE BAG MACHINE OPERATOR Hospitalization Condition: Good Hospital course: Assessment and Plan Advance Directives: Yes (full code) VTE prophylaxis?: Chemical Plan of care discussed with patient/family: Yes - Patient Problems (1) Acute coronary syndrome Current Visit: Yes Status: Acute Plan to address problem: Atypical chest pain. Chest wall tenderness present. First troponin is negative. Patient is free of chest pain. Possible costochondritis (2) Hypertension Current Visit: Yes Status: Chronic Qualifiers: Hypertension type: primary hypertension Qualified Code(s): I10 - Essential (primary) hypertension Plan to address problem: Continue antihypertensives and adjust medications. (3) T2DM (type 2 diabetes mellitus) Current Visit: Yes Status: Chronic Qualifiers: Diabetes mellitus superintendent container terminal insulin use: without superintendent container terminal use Diabetes mellitus complication status: without complication Qualified Code(s): E11.9 - Type 2 diabetes mellitus without complications Plan to address problem: Continue Metformin and coverage. (4) GERD (gastroesophageal reflux disease) Current Visit: Yes Status: Chronic Qualifiers: Esophagitis presence: without esophagitis Qualified Code(s): K21.9 - Gastro-esophageal reflux disease without esophagitis Plan to address problem: Continue PPIs. (5) DVT prophylaxis Current Visit: Yes Status: Acute Plan to address problem: On anticoagulation GI prophylaxis. Disposition: 01 HOME / SELF CARE / HOMELESS Final Discharge Diagnosis (Prints w/discharge instructions): Atypical chest pain. Costochondritis. Hypertension. T2DM. GERD Time spent for discharge: 30 minutes - Discharge Diagnoses (1) Acute coronary syndrome Status: Acute (2) GERD (gastroesophageal reflux disease) Status: Chronic Qualifiers: Esophagitis presence: without esophagitis Qualified Code(s): K21.9 - Gastro-esophageal reflux disease without esophagitis (3) Hypertension Status: Chronic Qualifiers: Hypertension type: primary hypertension Qualified Code(s): I10 - Essential (primary) hypertension (4) T2DM (type 2 diabetes mellitus) Status: Chronic Qualifiers: Diabetes mellitus correction insulin use: without correction use Diabetes mellitus complication status: without complication Qualified Code(s): E11.9 - Type 2 diabetes mellitus without complications (5) DVT prophylaxis Status: Acute Comment: Patient to follow-up with PCP this coming week and cardiology in 2 weeks for possible stress test as outpatient Core Measure Documentation - Palliative Care Palliative Care/ Comfort Measures: Not Applicable - Core Measures Any of the following diagnoses?: none Exam - Constitutional Vitals: Temp Pulse Resp BP Pulse Ox 68 16 117/65 95 03/29/21 19:39 03/29/21 19:39 03/29/21 19:39 03/29/21 19:39 General appearance: Present: no acute distress, well-nourished - EENT Eyes: Present: PERRL ENT: hearing intact, clear oral mucosa - Neck Neck: Present: supple, normal ROM - Respiratory Respiratory effort: normal Respiratory: bilateral: CTA - Cardiovascular Heart rate: 78 Rhythm: regular Heart Sounds: Present: S1 & S2. Absent: rub, click - Extremities Extremities: pulses symmetrical, No edema Peripheral Pulses: within normal limits - Abdominal General gastrointestinal: Present: soft, non-tender, non-distended, normal bowel sounds Female genitourinary: Present: normal - Integumentary Integumentary: Present: clear, warm, dry - Musculoskeletal Musculoskeletal: gait normal, strength equal bilaterally - Psychiatric Psychiatric: appropriate mood/affect, intact judgment & insight - Neurologic Neurologic: CNII-XII intact, moves all extremities Plan Diet: low salt Follow up with: ELISE FIGUEROA MD [Primary Care Provider] - 3-5 Days LAURIE CHIANG MD [Staff Physician] - 7 Days
[2021-03-30] MEDS ORDERED: SUCRALFATE 1 GM TAB PO SCH (07:30)
[2021-03-30] MEDS ORDERED: metFORMIN 500 MG TAB PO SCH (08:00)
[2021-03-30] MEDS ORDERED: GABAPENTIN 400 MG CAP PO SCH (08:00)
[2021-03-30] MEDS ORDERED: hydroCHLOROthiazide 25 MG TAB PO SCH (10:00)
[2021-03-30] MEDS ORDERED: METOPROLOL SUCCINATE XL 50 MG TAB PO SCH (10:00)
[2021-03-30] MEDS ORDERED: HEPARIN 5,000 UNIT/1 ML VIAL SUB-Q SCH (10:00)
[2021-03-30] MEDS ORDERED: PANTOPRAZOLE 40 MG TAB PO SCH (10:00)
[2021-03-30] MEDS ORDERED: BECLOMETHASONE DIPROPIONATE IH SCH (10:00)
--- NOTE | 2021-03-30 11:04 | Electrocardiograph Report ---
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
== END 2021-03-31 09:50 | disposition home or self-care (01) ==
LOC: ED 14:54
DX: R07.89 Other chest pain (principal); E66.8 Other obesity; I10 Essential (primary) hypertension; J45.909 Unspecified asthma, uncomplicated; G43.909 Migraine, unspecified, not intractable, without status migrainosus; M79.7 Fibromyalgia; G62.9 Polyneuropathy, unspecified; Z88.6 Allergy status to analgesic agent; Z88.8 Allergy status to other drugs, medicaments and biological substances; Z91.040 Latex allergy status; Z79.899 Other long term (current) drug therapy; Z88.5 Allergy status to narcotic agent
CPT/HCPCS: 36415; 71046; 71275; 80053; 82962; 83690; 84484; 85025; 85379; 93005; 93010; 96374; 96375; 99284; C9113; J1200; J2405; J2765; Q9967

== ENCOUNTER 2021-04-29 15:46 | Emergency (ER) | payer OTHER ==
[2021-04-29 16:02] VITALS: BP 151/82
[2021-04-29] MEDS ORDERED: ASPIRIN 325 MG TAB PO ONE (16:42)
[2021-04-29] MEDS ORDERED: MORPHINE 4 MG/1 ML INJ IV ONE (16:43)
[2021-04-29] MEDS ORDERED: ONDANSETRON 4 MG/2 ML INJ IV ONE (16:43)
--- NOTE | 2021-04-29 17:05 | Emergency Department Report ---
ED Chest Pain HPI - General Chief Complaint: Chest Pain Stated Complaint: CHEST PAIN Time Seen by Provider: 04/29/21 16:22 Source: patient, RN notes reviewed, old records reviewed Mode of arrival: Ambulatory Limitations: No Limitations - History of Present Illness Initial Comments: 50-year-old female the past medical history of obesity, fibromyalgia, hy pertension, diabetes, asthma, migraines, 16 status post knee surgery, and neuropathy previous DVTs in 2018 presents to the hospital complaining of ongoing intermittent chest pain. Patient complains of that her chest pain worsened today. Pain is intermittent, exacerbated by ambulation, movement, palpation, and deep inspiration. Pain described as a heaviness that radiates to her back and across her chest. Reproducible sternal chest wall tenderness. Associated symptoms include shortness of breath, diaphoresis, and nausea without vomiting. Patient was here March 29 and had a negative CT angiogram chest at that time. Patient was admitted but discharged the same day by the hospitalist. Since discharge patient attempted outpatient treadmill stress test but developed chest pain within 3 minutes. Her cutter head sharpener has rescheduled a nontreadmill stress test for this week. Positive family history of CAD (for sister who is similar in age has had an IL). She is a non-smoker. Main Line Assembler currently is Dr. Kaplan with [facility] [facility]ology - Related Data Home Medications Medication Instructions Recorded Confirmed Last Taken hydroCHLOROthiazide [HCTZ] 25 mg PO DAILY 03/20/16 04/02/18 06/17/16 Beclomethasone Dipropionate [Qvar] 2 puff IH QDAY 06/17/16 04/02/18 06/17/16 Metoprolol Succinate [Toprol Xl] 50 mg PO QDAY 04/02/18 04/02/18 Unknown Pantoprazole [Protonix TAB] 40 mg PO DAILY 04/02/18 04/02/18 Unknown Previous Rx's Medication Instructions Recorded Last Taken Type Gabapentin [Neurontin] 400 mg PO TID #90 capsule 04/03/18 Unknown Rx metFORMIN [Glucophage] 500 mg PO BIDDIAB #60 tablet 04/03/18 Unknown Rx Sucralfate [Carafate] 1 gm PO ACHS #28 tablet 07/19/20 Unknown Rx Aspirin 325 mg PO QDAY #30 tablet 04/29/21 Unknown Rx HYDROcodone/APAP 5-325 [[place] 1 each PO Q6HR PRN #12 tablet 04/29/21 Unknown Rx 5/325] Ondansetron [Zofran Odt] 4 mg PO Q8HR PRN #15 tab.rapdis 04/29/21 Unknown Rx Allergies Allergy/AdvReac Type Severity Reaction Status Date / Time acetaminophen [From Percocet] Allergy Nausea,VOMI Verified 03/29/21 15:51 TING aspirin Allergy Dizziness Verified 03/29/21 15:51 latex Allergy Rash Verified 03/29/21 15:51 naproxen [From Naprosyn] Allergy Rash Verified 03/29/21 15:51 oxycodone HCl [From Percocet] Allergy Nausea,VOMI Verified 03/29/21 15:51 TING Sulfa (Sulfonamide Allergy Vomiting Verified 03/29/21 15:51 Antibiotics) Heart Score - HEART Score History: Slightly suspicious EKG: Non-specific Age: 45-65 Risk factors: > 3 risk factors or hx of atherosclerotic disease Troponin: < normal limit HEART Score: 4 - EKG Read Time Time EKG Completed: 15:51 EKG Read Time: 15:51 (EKG unchanged compared to previous) ED Review of Systems ROS: Stated complaint: CHEST PAIN Other details as noted in HPI ED Past Medical Hx - Past Medical History Hx Hypertension: Yes 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 TIA OCT 2015. neuropathy. fibro myalgia - Surgical History Hx Cholecystectomy: Yes Additional Surgical History: R shoulder surgery - Social History Smoking Status: Never Smoker - Medications Home Medications: Home Medications Medication Instructions Recorded Confirmed Last Taken Type hydroCHLOROthiazide [HCTZ] 25 mg PO DAILY 03/20/16 04/02/18 06/17/16 History Beclomethasone Dipropionate [Qvar] 2 puff IH QDAY 06/17/16 04/02/18 06/17/16 History Metoprolol Succinate [Toprol Xl] 50 mg PO QDAY 04/02/18 04/02/18 Unknown History Pantoprazole [Protonix TAB] 40 mg PO DAILY 04/02/18 04/02/18 Unknown History Gabapentin [Neurontin] 400 mg PO TID #90 capsule 04/03/18 Unknown Rx metFORMIN [Glucophage] 500 mg PO BIDDIAB #60 tablet 04/03/18 Unknown Rx Sucralfate [Carafate] 1 gm PO ACHS #28 tablet 07/19/20 Unknown Rx Aspirin 325 mg PO QDAY #30 tablet 04/29/21 Unknown Rx HYDROcodone/APAP 5-325 [[place] 1 each PO Q6HR PRN #12 tablet 04/29/21 Unknown Rx 5/325] Ondansetron [Zofran Odt] 4 mg PO Q8HR PRN #15 tab.rapdis 04/29/21 Unknown Rx ED Physical Exam - General Limitations: No Limitations ED Course Vital Signs 04/29/21 15:56 Temperature 97.5 F L Pulse Rate 86 Respiratory 18 Rate Blood Pressure 151/82 O2 Sat by Pulse 98 Oximetry - Consultations Consultation #1: 04/29/21 19:[address] Fox cutter head sharpener with [facility] who advises anti-inflammatories as pain relief and follow-up in the office for her scheduled stress test this week ORLANDO score - Orlando Score Age > 65: (0) No Aspirin use within the Past 7 Days: (1) Yes 3 or more CAD Risk Factors: (1) Yes 2 or more Angina events in past 24 hrs: (1) Yes Known CAD with more than 50% Stenosis: (0) No Elevated Cardiac Markers: (0) No ST Deviation Greater than 0.5mm: (0) No [place]O Score: 3 ED Medical Decision Making - Lab Data Result diagrams: 04/29/21 17:18 04/29/21 17:18 Lab Results 04/29/21 04/29/21 04/29/21 Range/Units 17:18 17:18 17:18 WBC 6.6 (4.5-11.0) K/mm3 RBC 4.42 (3.65-5.03) M/mm3 Hgb 14.5 H (10.1-14.3) gm/dl Hct 41.0 (30.3-42.9) % MCV 93 (79-97) fl MCH 33 H (28-32) pg MCHC 35 H (30-34) % RDW 14.2 (13.2-15.2) % Plt Count 251 (140-440) K/mm3 Lymph % (Auto) 33.2 (13.4-35.0) % [place] % (Auto) 6.1 (0.0-7.3) % Eos % (Auto) 2.6 (0.0-4.3) % Baso % (Auto) 0.3 (0.0-1.8) % Lymph # (Auto) 2.2 (1.2-5.4) K/mm3 [place] # (Auto) 0.4 (0.0-0.8) K/mm3 Eos # (Auto) 0.2 (0.0-0.4) K/mm3 Baso # (Auto) 0.0 (0.0-0.1) K/mm3 Seg Neutrophils % 57.8 (40.0-70.0) % Seg Neutrophils # 3.8 (1.8-7.7) K/mm3 PT 13.8 (12.2-14.9) Sec. INR 0.96 (0.87-1.13) APTT 29.6 (24.2-36.6) Sec. Sodium 136 L (137-145) mmol/L Potassium 4.0 (3.6-5.0) mmol/L Chloride 96.3 L (98-107) mmol/L Carbon Dioxide 26 (22-30) mmol/L Anion Gap 18 mmol/L BUN 12 (7-17) mg/dL Creatinine 0.7 (0.6-1.2) mg/dL Estimated GFR > 60 ml/min BUN/Creatinine Ratio 17 % Glucose 151 H (65-100) mg/dL Calcium 11.1 H (8.4-10.2) mg/dL Total Bilirubin 0.60 (0.1-1.2) mg/dL AST 55 H (5-40) units/L ALT 54 (7-56) units/L Alkaline Phosphatase 133 H (35-129) units/L Troponin T < 0.010 (0.00-0.029) ng/mL Total Protein 8.8 H (6.3-8.2) g/dL Albumin 5.4 H (3.9-5) g/dL Albumin/Globulin Ratio 1.6 % 04/29/21 Range/Units 19:29 WBC (4.5-11.0) K/mm3 RBC (3.65-5.03) M/mm3 Hgb (10.1-14.3) gm/dl Hct (30.3-42.9) % MCV (79-97) fl MCH (28-32) pg MCHC (30-34) % RDW (13.2-15.2) % Plt Count (140-440) K/mm3 Lymph % (Auto) (13.4-35.0) % [place] % (Auto) (0.0-7.3) % Eos % (Auto) (0.0-4.3) % Baso % (Auto) (0.0-1.8) % Lymph # (Auto) (1.2-5.4) K/mm3 [place] # (Auto) (0.0-0.8) K/mm3 Eos # (Auto) (0.0-0.4) K/mm3 Baso # (Auto) (0.0-0.1) K/mm3 Seg Neutrophils % (40.0-70.0) % Seg Neutrophils # (1.8-7.7) K/mm3 PT (12.2-14.9) Sec. INR (0.87-1.13) APTT (24.2-36.6) Sec. Sodium (137-145) mmol/L Potassium (3.6-5.0) mmol/L Chloride (98-107) mmol/L Carbon Dioxide (22-30) mmol/L Anion Gap mmol/L BUN (7-17) mg/dL Creatinine (0.6-1.2) mg/dL Estimated GFR ml/min BUN/Creatinine Ratio % Glucose (65-100) mg/dL Calcium (8.4-10.2) mg/dL Total Bilirubin (0.1-1.2) mg/dL AST (5-40) units/L ALT (7-56) units/L Alkaline Phosphatase (35-129) units/L Troponin T < 0.010 (0.00-0.029) ng/mL Total Protein (6.3-8.2) g/dL Albumin (3.9-5) g/dL Albumin/Globulin Ratio % - EKG Data -: EKG Interpreted by Ia EKG shows normal: sinus rhythm, ST-T waves (No STEMI) - EKG Data When compared to previous EKG there are: no significant change - Radiology Data Radiology results: report reviewed CHEST 2 VIEWS, 04/29/2021 INDICATION: Chest pain COMPARISON: Chest radiograph, 03/29/2021 FINDINGS: Support devices: None. Heart: The cardiac silhouette is normal in size. Lungs/pleura: The lungs are clear of focal airspace disease or significant pleural effusion. Additional findings: No significant acute abnormality. IMPRESSION: 1. No evidence of acute cardiopulmonary process. - Medical Decision Making 50-year-old female with persistent atypical chest pain which is reproducible on exam. Patient is unchanged EKG, troponin negative x2. Case was discussed with cutter head sharpener who recommends pain treatment and outpatient follow-up to continue her outpatient stress test as scheduled this week. Patient did receive aspirin and morphine in the ED - Differential Diagnosis Chest wall tenderness, unstable angina, IL, PE, Critical Care Time: No Critical care attestation.: If time is entered above; I have spent that time in minutes in the direct care of this critically ill patient, excluding procedure time. ED Disposition Clinical Impression: Chest pain, Chest wall pain Disposition: HOME / SELF CARE / HOMELESS Is pt being admited?: No Condition: Stable Instructions: Nonspecific Chest Pain, Adult Additional Instructions: Take the medication as prescribed. Follow-up with for your stress test as scheduled. return if symptoms worsen as indicated by your discharge instructions. Prescriptions: Aspirin 325 mg PO QDAY #30 tablet HYDROcodone/APAP 5-325 [[place] 5/325] 1 each PO Q6HR PRN #12 tablet PRN Reason: Pain Ondansetron [Zofran Odt] 4 mg PO Q8HR PRN #15 tab.rapdis PRN Reason: Nausea And Vomiting Referrals: PRIMARY CARE, [Primary Care Provider] - 3-5 Days CURTIS TEJEDA MD [Staff Physician] - 2-3 Days Time of Disposition: 21:40
--- NOTE | 2021-04-29 17:21 | XRay Report ---
CHEST 2 VIEWS, 04/29/2021 INDICATION: Chest pain COMPARISON: Chest radiograph, 03/29/2021 FINDINGS: Support devices: None. Heart: The cardiac silhouette is normal in size. Lungs/pleura: The lungs are clear of focal airspace disease or significant pleural effusion. Additional findings: No significant acute abnormality. IMPRESSION: 1. No evidence of acute cardiopulmonary process. Signer Name: Josselin Robles MD Signed: 04/29/2021 5:16 PM Workstation Name: [id number]
[2021-04-29 18:20] LABS: Basophils % (Auto) 0.3 % (0.0-1.8); Eosinophils # (Auto) 0.2 K/mm3 (0.0-0.4); Eosinophils % (Auto) 2.6 % (0.0-4.3); Hemoglobin 14.5 gm/dl (10.1-14.3); Lymphocytes # (Auto) 2.2 K/mm3 (1.2-5.4); Lymphocytes % (Auto) 33.2 % (13.4-35.0); Mean Corpuscular HGB Conc 35 % (30-34); Mean Corpuscular Volume 93 fl (79-97); Monocytes # (Auto) 0.4 K/mm3 (0.0-0.8); Monocytes % (Auto) 6.1 % (0.0-7.3); Platelet Count 251 K/mm3 (140-440); Red Blood Count 4.42 M/mm3 (3.65-5.03); Red Cell Distribution Width 14.2 % (13.2-15.2)
[2021-04-29 18:29] LABS: INR 0.96 (0.87-1.13)
[2021-04-29 18:30] LABS: Partial Thromboplastin Time 29.6 Sec. (24.2-36.6)
[2021-04-29 18:42] LABS: Alanine Aminotransferase 54 units/L (7-56); Albumin 5.4 g/dL (3.9-5); Blood Urea Nitrogen 12 mg/dL (7-17); Calcium 11.1 mg/dL (8.4-10.2); Hemolysis Index 4
[2021-04-29 18:47] LABS: BUN/Creatinine Ratio 17
--- NOTE | 2021-04-30 10:22 | Electrocardiograph Report ---
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
== END 2021-04-29 23:18 | disposition home or self-care (01) ==
LOC: ED 15:46
DX: R07.9 Chest pain, unspecified (principal); R07.89 Other chest pain; I10 Essential (primary) hypertension; Z90.49 Acquired absence of other specified parts of digestive tract; E11.8 Type 2 diabetes mellitus with unspecified complications; J45.909 Unspecified asthma, uncomplicated
CPT/HCPCS: 36415; 71046; 80053; 84484; 85025; 85610; 85730; 93005; 96374; 96375; 99284; J2270; J2405

== ENCOUNTER 2021-05-30 10:38 | Outpatient (CLI) | payer OTHER ==
--- NOTE | 2021-05-30 12:35 | Vascular Lab Report ---
DUPLEX DOPPLER LOWER EXTREMITY VEINS, BILATERAL INDICATION / CLINICAL INFORMATION: LEG PAIN. TECHNIQUE: Duplex doppler imaging was performed through the veins of both lower extremities using clemente ous compression and other maneuvers. COMPARISON: None available. FINDINGS: RIGHT COMMON FEMORAL VEIN: Negative. RIGHT FEMORAL VEIN: Negative. RIGHT POPLITEAL VEIN: Negative. RIGHT CALF VEINS: Negative. LEFT COMMON FEMORAL VEIN: Negative. LEFT FEMORAL VEIN: Negative. LEFT POPLITEAL VEIN: Negative. LEFT CALF VEINS: Negative. ADDITIONAL FINDINGS: None. IMPRESSION: 1. No sonographic evidence for DVT in either lower extremity. Scribed by: Dunia Nava RDMS, RUBY, BRYSON Scribed: 05/30/2021 11:12 AM I have reviewed the images, agree with this report, and edited this report as needed. Signer Name: Eugenio Delong MD Signed: 05/30/2021 12:31 PM Workstation Name: [id number]
[2021-05-30 12:57] LABS: Blood Urea Nitrogen 11 mg/dL (7-17)
--- NOTE | 2021-05-30 15:42 | Cat Scan Report ---
CTA CHEST WITH CONTRAST INDICATION / CLINICAL INFORMATION: R06.02. Chest pain. TECHNIQUE: Axial CT images were obtained through the chest after injection of 100 mL Omnipaque 350 IV contrast. 3 plane MIP and/or 3D reconstructions were produced. All CT scans at this location are per formed using CT dose reduction for ALARA by means of automated exposure control. COMPARISON: CT dated 03/29/21 FINDINGS: PULMONARY EMBOLUS: None. THORACIC AORTA: No significant abnormality. HEART: No significant abnormality. CORONARY ARTERY CALCIFICATION: Absent -- None. MEDIASTINUM / JIMBO: No significant abnormality. PLEURA: No pleural effusion. No pneumothorax. LUNGS: No acute air space or interstitial disease. ADDITIONAL FINDINGS: None. UPPER ABDOMEN: Moderate hepatomegaly with hepatic steatosis, unchanged. Cholecystectomy. SKELETAL STRUCTURES: No significant osseous abnormality. IMPRESSION: 1. No CT evidence for pulmonary embolism. 2. No acute findings. 3. Hepatomegaly with hepatic steatosis, unchanged. Signer Name: Nara Kunz MD Signed: 05/30/2021 3:38 PM Workstation Name: [employer]
== END 2021-05-30 10:39 | disposition home or self-care (01) ==
LOC: CT 10:38
PROVIDERS: ATTEND Internal Medicine
DX: R06.02 Shortness of breath (principal); K76.0 Fatty (change of) liver, not elsewhere classified; R16.0 Hepatomegaly, not elsewhere classified; M79.604 Pain in right leg; M79.605 Pain in left leg; J45.909 Unspecified asthma, uncomplicated; Z86.718 Personal history of other venous thrombosis and embolism
CPT/HCPCS: 36415; 71275; 82565; 84520; 93970; Q9967

== ENCOUNTER → 2021-06-24 | Outpatient (CLI) | payer OTHER | END | disposition home or self-care (01) | LOC: SLR 11:00 | PROVIDERS: ATTEND Internal Medicine | DX: G47.33 Obstructive sleep apnea (adult) (pediatric) (principal) | CPT/HCPCS: G0399 ==

== ENCOUNTER → 2021-07-24 | Outpatient (CLI) | payer OTHER | END | disposition home or self-care (01) | LOC: SLR 11:00 | PROVIDERS: ATTEND Internal Medicine | DX: G47.33 Obstructive sleep apnea (adult) (pediatric) (principal) | CPT/HCPCS: 95811 ==

== ENCOUNTER 2021-08-06 14:12 | Emergency (ER) | payer OTHER ==
[2021-08-06 14:46] VITALS: BP 159/87
[2021-08-06 15:55] LABS: Bilirubin,Urine NEG (Negative); Blood,Urine NEG (Negative); Color,Urine Straw (Yellow); Protein,Urine <15 mg/dL mg/dL (Negative); Urobilinogen,Urine < 2.0 mg/dL (<2.0)
[2021-08-06 15:57] LABS: Mucus,Urine FEW /HPF; WBC,Urine < 1.0 /HPF (0.0-6.0)
[2021-08-06 16:01] LABS: Basophils % (Auto) 0.5 % (0.0-1.8); Eosinophils # (Auto) 0.2 K/mm3 (0.0-0.4); Hematocrit 38.1 % (30.3-42.9); Hemoglobin 13.1 gm/dl (10.1-14.3); Lymphocytes # (Auto) 2.2 K/mm3 (1.2-5.4); Mean Corpuscular HGB Conc 35 % (30-34); Mean Corpuscular Volume 92 fl (79-97); Monocytes # (Auto) 0.4 K/mm3 (0.0-0.8); Monocytes % (Auto) 6.6 % (0.0-7.3); Platelet Count 220 K/mm3 (140-440); Red Blood Count 4.13 M/mm3 (3.65-5.03); Red Cell Distribution Width 13.5 % (13.2-15.2)
[2021-08-06 16:37] LABS: Alanine Aminotransferase 36 units/L (7-56); Albumin 4.8 g/dL (3.9-5); Blood Urea Nitrogen 13 mg/dL (7-17); Calcium 10.4 mg/dL (8.4-10.2); Hemolysis Index 7
[2021-08-06 16:54] LABS: BUN/Creatinine Ratio 19
--- NOTE | 2021-08-06 17:08 | XRay Report ---
CHEST 2 VIEWS INDICATION / CLINICAL INFORMATION: weakness. COMPARISON: 04/29/2021 FINDINGS: SUPPORT DEVICES: None. HEART / MEDIASTINUM: Normal cardiac size. LUNGS / PLEURA: No acute pulmonary or pleural disease. No pneumothorax. ADDITIONAL FINDINGS: No significant additional findings. IMPRESSION: 1. No acute findings. No interval change. Signer Name: Anaid Roca MD Signed: 08/06/2021 5:04 PM Workstation Name: [id number]
[2021-08-06] MEDS ORDERED: ACETAMINOPHEN 500 MG TAB PO ONE (22:41)
[2021-08-06] MEDS ORDERED: diphenhydrAMINE 25 MG CAP PO ONE (22:42)
--- NOTE | 2021-08-06 22:54 | Emergency Department Report ---
ED General Adult HPI - General Chief complaint: Hyperglycemia Stated complaint: HIGH BLOOD SUGAR Time Seen by Provider: 08/06/21 22:40 Source: patient Mode of arrival: Ambulatory Limitations: No Limitations - History of Present Illness Initial comments: Patient 28-year-old female history of type 2 diabetes, asthma, fibromyalgia who presents for elevated blood sugars x2 days. States blood sugar was 400 at home however patient is taking 70/30 insulin for 25 units a.m. 15 units p.m. reduce his blood glucose down to 200. Denies fevers chills no dysuria frequency or urgency no productive cough. No nausea or vomiting. Symptoms are exacerbating 4/10 frontal headache. This is usual location and intensity and duration for headaches for this patient however. There is no photophobia no loss of vision. Patient denies other symptoms patient does have a primary care doctor. - Related Data Home Medications Medication Instructions Recorded Confirmed Last Taken hydroCHLOROthiazide [HCTZ] 25 mg PO DAILY 03/20/16 04/02/18 06/17/16 Beclomethasone Dipropionate [Qvar] 2 puff IH QDAY 06/17/16 04/02/18 06/17/16 Metoprolol Succinate [Toprol Xl] 50 mg PO QDAY 04/02/18 04/02/18 Unknown Pantoprazole [Protonix TAB] 40 mg PO DAILY 04/02/18 04/02/18 Unknown Previous Rx's Medication Instructions Recorded Last Taken Type Gabapentin [Neurontin] 400 mg PO TID #90 capsule 04/03/18 Unknown Rx metFORMIN [Glucophage] 500 mg PO BIDDIAB #60 tablet 04/03/18 Unknown Rx Sucralfate [Carafate] 1 gm PO ACHS #28 tablet 07/19/20 Unknown Rx Aspirin 325 mg PO QDAY #30 tablet 04/29/21 Unknown Rx HYDROcodone/APAP 5-325 [[place] 1 each PO Q6HR PRN #12 tablet 04/29/21 Unknown Rx 5/325] Ondansetron [Zofran Odt] 4 mg PO Q8HR PRN #15 tab.rapdis 04/29/21 Unknown Rx Allergies Allergy/AdvReac Type Severity Reaction Status Date / Time acetaminophen [From Percocet] Allergy Nausea,VOMI Verified 03/29/21 15:51 TING aspirin Allergy Dizziness Verified 03/29/21 15:51 latex Allergy Rash Verified 03/29/21 15:51 naproxen [From Naprosyn] Allergy Rash Verified 03/29/21 15:51 oxycodone HCl [From Percocet] Allergy Nausea,VOMI Verified 03/29/21 15:51 TING Sulfa (Sulfonamide Allergy Vomiting Verified 03/29/21 15:51 Antibiotics) ED Review of Systems ROS: Stated complaint: HIGH BLOOD SUGAR Other details as noted in HPI Constitutional: denies: chills, fever Eyes: denies: eye pain, eye discharge, vision change ENT: as per HPI Respiratory: denies: cough, shortness of breath, wheezing Cardiovascular: denies: chest pain, palpitations Endocrine: no symptoms reported Gastrointestinal: denies: abdominal pain, nausea, diarrhea Genitourinary: denies: urgency, dysuria, discharge Musculoskeletal: denies: back pain, joint swelling, arthralgia Skin: denies: rash, lesions Neurological: headache. 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 TIA OCT 2015. neuropathy. fibromyalgia. carpal tunnel. GERD - Surgical History Hx Cholecystectomy: Yes Additional Surgical History: R shoulder surgery - Social History Smoking Status: Never Smoker - Medications Home Medications: Home Medications Medication Instructions Recorded Confirmed Last Taken Type hydroCHLOROthiazide [HCTZ] 25 mg PO DAILY 03/20/16 04/02/18 06/17/16 History Beclomethasone Dipropionate [Qvar] 2 puff IH QDAY 06/17/16 04/02/18 06/17/16 History Metoprolol Succinate [Toprol Xl] 50 mg PO QDAY 04/02/18 04/02/18 Unknown History Pantoprazole [Protonix TAB] 40 mg PO DAILY 04/02/18 04/02/18 Unknown History Gabapentin [Neurontin] 400 mg PO TID #90 capsule 04/03/18 Unknown Rx metFORMIN [Glucophage] 500 mg PO BIDDIAB #60 tablet 04/03/18 Unknown Rx Sucralfate [Carafate] 1 gm PO ACHS #28 tablet 07/19/20 Unknown Rx Aspirin 325 mg PO QDAY #30 tablet 04/29/21 Unknown Rx HYDROcodone/APAP 5-325 [[place] 1 each PO Q6HR PRN #12 tablet 04/29/21 Unknown Rx 5/325] Ondansetron [Zofran Odt] 4 mg PO Q8HR PRN #15 tab.rapdis 04/29/21 Unknown Rx ED Physical Exam - General Limitations: No Limitations General appearance: alert, in no apparent distress - Head Head exam: Present: atraumatic, normocephalic - Eye Eye exam: Present: normal appearance, EOMI Pupils: Present: normal accommodation - ENT ENT exam: Present: normal orophraynx, mucous membranes moist - Neck Neck exam: Present: normal inspection, full ROM. Absent: tenderness, lymphadenopathy - Respiratory Respiratory exam: Present: normal lung sounds bilaterally. Absent: respiratory distress - Cardiovascular Cardiovascular Exam: Present: regular rate, normal rhythm, normal heart sounds. Absent: systolic murmur, diastolic murmur, rubs, gallop - GI/Abdominal GI/Abdominal exam: Present: soft, normal bowel sounds. Absent: distended - Extremities Exam Extremities exam: Present: normal inspection, full ROM, normal capillary refill - Back Exam Back exam: Present: normal inspection, full ROM. Absent: tenderness, CVA tenderness (R), CVA tenderness (L) - Neurological Exam Neurological exam: Present: alert, oriented X3, CN II-XII intact, normal gait - Expanded Neurological Exam Expanded Patient oriented to: Present: person, place, time Speech: Present: fluid speech Best Eye Response ([place]): (4) open spontaneously Best Motor Response ([place]): (6) obeys commands Best Verbal Response ([place]): (5) oriented [place] Total: 15 - Psychiatric Psychiatric exam: Present: normal affect - Skin Skin exam: Present: warm, dry, intact, normal color. Absent: rash ED Course Vital Signs 08/06/21 14:41 Temperature 98.3 F Pulse Rate 82 Respiratory 12 Rate Blood Pressure 159/87 O2 Sat by Pulse 96 Oximetry ED Medical Decision Making - Lab Data Result diagrams: 08/06/21 15:30 08/06/21 15:30 - Radiology Data Radiology results: report reviewed, image reviewed CHEST 2 VIEWS INDICATION / CLINICAL INFORMATION: weakness. COMPARISON: 04/29/2021 FINDINGS: SUPPORT DEVICES: None. HEART / MEDIASTINUM: Normal cardiac size. LUNGS / PLEURA: No acute pulmonary or pleural disease. No pneumothorax. ADDITIONAL FINDINGS: No significant additional findings. IMPRESSION: 1. No acute findings. No interval change. Signer Name: Anaid Roca MD Signed: 08/06/2021 5:04 PM Workstation Name: [email or web address] Transcribed By: Dictated By: Anaid Roca MD Electronically Authenticated By: Anaid Roca MD Signed Date/Time: 08/06/211703 DD/ 01 TD/TT: - Medical Decision Making Labs noted above not actionable plan increase 7030 dose to 30 a.m. 20 p.m. follow-up with primary care doctor tomorrow for insulin adjustments. Patient verbalized agreement understanding discharge plan. Patient DC'd home in stable condition at this time. Patient currently alert oriented x3 amatory with steady gait there is no dizziness no nausea no vomiting at this time. Headache is impr oving. Critical care attestation.: If time is entered above; I have spent that time in minutes in the direct care of this critically ill patient, excluding procedure time. ED Disposition Clinical Impression: Hyperglycemia Disposition: 01 HOME / SELF CARE / HOMELESS Is pt being admited?: No Does the pt Need Aspirin: No Condition: Stable Instructions: Hyperglycemia Additional Instructions: Increase insulin to 30 units in the a.m. 20 units in p.m. follow-up with primary care doctor in 1 to 2 days. Return to emergency department should symptoms worsen. Referrals: MONTSERRAT VILLELA MD [Staff Physician] - 3-5 Days Forms: Work/School Release Form(ED) Time of Disposition: 23:01
--- NOTE | 2021-08-08 19:01 | Electrocardiograph Report ---
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
== END 2021-08-06 23:05 | disposition home or self-care (01) ==
LOC: ED 14:12
DX: E11.65 Type 2 diabetes mellitus with hyperglycemia (principal); I10 Essential (primary) hypertension; G43.909 Migraine, unspecified, not intractable, without status migrainosus; J45.909 Unspecified asthma, uncomplicated; Z86.73 Personal history of transient ischemic attack (TIA), and cerebral infarction without residual deficits; Z90.49 Acquired absence of other specified parts of digestive tract; Z88.6 Allergy status to analgesic agent; Z88.1 Allergy status to other antibiotic agents; Z91.014 Allergy to mammalian meats; Z88.2 Allergy status to sulfonamides; Z91.09 Other allergy status, other than to drugs and biological substances; Z79.899 Other long term (current) drug therapy
CPT/HCPCS: 36415; 71046; 80053; 81001; 82010; 82962; 84484; 85025; 93005; 99284

== ENCOUNTER 2021-08-24 15:20 | Emergency (ER) | payer OTHER ==
[2021-08-24 16:13] VITALS: BP 153/92
[2021-08-24 18:10] LABS: Basophils % (Auto) 0.4 % (0.0-1.8); Eosinophils # (Auto) 0.2 K/mm3 (0.0-0.4); Eosinophils % (Auto) 3.4 % (0.0-4.3); Hematocrit 38.1 % (30.3-42.9); Hemoglobin 13.3 gm/dl (10.1-14.3); Lymphocytes # (Auto) 2.2 K/mm3 (1.2-5.4); Lymphocytes % (Auto) 40.1 % (13.4-35.0); Mean Corpuscular HGB Conc 35 % (30-34); Mean Corpuscular Volume 93 fl (79-97); Monocytes # (Auto) 0.4 K/mm3 (0.0-0.8); Monocytes % (Auto) 7.4 % (0.0-7.3); Platelet Count 206 K/mm3 (140-440)
[2021-08-24 18:23] LABS: BUN/Creatinine Ratio 16; Blood Urea Nitrogen 13 mg/dL (7-17); Hemolysis Index 20
== END 2021-08-26 12:55 | disposition left against medical advice (07) ==
LOC: ED 15:20
DX: R73.9 Hyperglycemia, unspecified (principal); Z53.21 Procedure and treatment not carried out due to patient leaving prior to being seen by health care provider
CPT/HCPCS: 36415; 80048; 80320; 82805; 82962; 83735; 85025; G0480